=== PATIENT | female | born 1990 | race Caucasian/White ===

== ENCOUNTER 2020-05-10 11:33 | Emergency (ER) | payer OTHER, SELFPAY ==
[2020-05-10 11:36] VITALS: BP 122/73; PULSE 82; RESP 20; TEMP 37.1; O2SAT 90; BMI 39.4
--- NOTE | 2020-05-10 11:39 | XR_ITS ---
WS: [id number] PORTABLE CHEST HISTORY: dyspnea/cough COMPARISON: 09/13/2017 There is some very mild haziness at the LEFT lung base and fluid along the RIGHT minor fissure. Fulln ess at the hilar regions bilaterally consistent with venous congestion. Small RIGHT pleural effusion. Cardiac size: Mildly enlarged cardiac silhouette. Mediastinum/Aorta: Normal mediastinum. No osseous abnormality seen. XR/XR chest 1V portable [id number] IMPRESSION: Interval development of mild CHF. Small LEFT pleural effusion.
--- NOTE | 2020-05-10 11:40 | ECG_ITS ---
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 Measurements Intervals [place] Rate: 72 P: 36 WI: 157 QRS: 11 QRSD: 89 T: 24 QT: 375 QTc: 412 Interpretive Statements SINUS RHYTHM Compared to ECG 09/13/2017 22:14:30 Left ventricular hypertrophy no longer present Electronically Signed On 05-10-2020 15:35:29 CDT by Siobhan Barakat M.D. [id number] f
--- NOTE | 2020-05-10 11:40 | CT_ITS ---
WS: [id number] CT HEAD NONCONTRAST HISTORY: AMS TECHNIQUE: Contiguous axial imaging performed through the brain in 2.5 mm imaging. Bone and soft tiss ue windows. Sagittal and coronal reformats reviewed. All CT scans at [facility] use at ast one of these dose optimization techniques: automated exposure control; mA and/or kV adjustment pe r patient size (includes targeted exams where dose is matched to clinical indication); or iterative r econstruction. DLP: 787.43 mGy.cm COMPARISON: 03/09/2013 No acute intracranial hemorrhage, midline shift or mass effect. No atrophy or prior infarcts or herniation. Ventricles: Normal size with no hydrocephalus. Paranasal sinuses: As visualized are clear. Mastoid air cells: Well pneumatized. Calvarium and scalp: Skull is intact with no soft tissue edema or swelling. CT/CT head wo con* [id number] IMPRESSION: Negative head CT.
--- NOTE | 2020-05-10 11:41 | W.ED.AMS ---
HPI - Altered Mental Status General: Chief Complaint: Altered Mental Status Stated Complaint: ALOC/ ARRINGTON/ SOB/ HYPERTENSION Time Seen by Provider: 05/10/20 11:38 History of Present Illness: HPI narrative: 29 yo female presents emergency room with hypoxia. She came in by EMS family states she is unresponsive and shaking gives no history of seizure she can can remember the event she felt like she was going to pass out she denies hitting her head she does have a history of opiate addiction as well. States for the last couple of days she has been coughing and short of breath she had a subjective fever. Cough is been nonproductive EMS reports that on room air she was 88% on arrival and improved to 94% on 3 L by nasal cannula she does not usually use oxygen. She denies any history of chronic respiratory problems she has no known exposures far she is aware to anyone who is recently been ill or known to be COVID-19 positive. Initially patient was sedate later in the ER visit she became awake alert and oriented x3 Review of Systems Const: Reports: fever(s), chills, body aches, fatigue and malaise; Denies: change in appetite ENMT: Denies: throat pain, ear or mastoid pain, nasal discharge or nasal congestion Card: Denies: chest pain, edema, dyspnea on exertion or orthopnea Resp: Reports: dyspnea and non-productive cough; Denies: productive cough GI: Reports: nausea; Denies: abdominal pain, vomiting, hematemesis, coffee ground emesis, diarrhea, constipation, bloating, hematochezia or melena : Denies: flank pain, difficulty voiding, dysuria, urinary frequency or urinary urgency Skin/Breast: Denies: rash or pruritus PFSH ED PFSH: Medical History Nephrolithiasis Surgical History History of appendectomy History of section History of cholecystectomy History of ventral hernia repair Family History Other CAD (coronary artery disease) Social History Smoking and tobacco status: current every day smoker cigarettes Packs smoked per day: 1 Alcohol intake: never Physical Exam Const: ORIENTATION/CONSCIOUSNESS: Yes awake, Yes oriented to person, Yes oriented to place and Yes oriented to time HENMT: COMMON NORMALS: normocephalic, atraumatic, hearing grossly normal bilaterally, external ears normal, moist oral mucous membranes and oropharynx normal HEAD & SCALP: normocephalic and atraumatic EXTERNAL EAR: Yes external ears normal Eye: COMMON NORMALS: Equal, round and reactive pupils present, EOMs intact bilaterally, conjunctivae normal and no scleral icterus CONJUNCTIVA: Yes conjunctivae normal PUPIL: Yes Equal, round and reactive pupils present Neck/C-Spine: COMMON NORMALS: full ROM, no lymphadenopathy, supple and no JVD Lymph: LYMPHATIC: no lymphadenopathy noted and no lymphedema noted Resp: AUSCULTATION: rhonchi, wheezes, diminished lung sounds and bronchial breath sounds Cardio: COMMON NORMALS: no JVD, regular rate, regular rhythm and No murmurs present (Cardio) RATE: regular rate RHYTHM: regular rhythm GI: COMMON NORMALS: Soft to palpation and No hepatosplenomegaly present AUSCULTATION: Yes normoactive bowel sounds PALPATION: Yes Soft to palpation, No Tenderness to palpation present (GI), No Guarding due to palpation present (GI) and Yes No hepatosplenomegaly present Extremity: COMMON NORMALS: normal to inspection, capillary refill normal, no clubbing, cyanosis or edema, no calf tenderness and no pedal edema Neuro: SENSORIUM/ORIENTATION: Yes oriented to person, Yes oriented to place and Yes oriented to time Skin: COMMON NORMALS: no rashes or lesions noted GENERAL SKIN EXAM: no rashes or lesions noted Course Vital Signs: Vital signs: Vital Signs Temperature 98.8 F 05/10/20 11:36 Pulse Rate 82 05/10/20 11:36 Respiratory Rate 17 05/10/20 20:06 Blood Pressure 122/73 05/10/20 11:36 Pulse Oximetry 99 05/10/20 20:06 MDM - Altered Mental Status MDM Narrative: Medical decision making narrative: Patient CT shows groundglass appearance very consistent with covid 19. Discussed with the patient discussed with Dr. Land and Dr. Baca will place her in the MICU in the POI section. She is requiring oxygen at 4 L/min by nasal cannula to maintain her oxygen saturation. While we are waiting to get patient transferred to the VICU she decided she wanted to leave AMA I went in and discussed with her's had an exhaustive conversation with the patient. She is adamant about going home. Expressed to her the risk to herself the wrist others. Also expressed to her the potential for herself to worsen and even from this as well as spreading this to others. She is adamant that she leave she just does not wish to stay overnight. She does not believe there is any risk to others she believes other people she has been around she is already exposed. She also does not believe she has it and is not willing to wait for the results to find out one way or another. Recommended to her that she stay until the results come back. Stated to the patient she is putting her own life at risk by leaving since she was already showing evidence of hypoxia. She expresses understanding and wishes to leave anyway. Lab Data: Labs: Lab Results 05/10/20 05/10/20 05/10/20 Range/Units 11:55 12:44 12:44 WBC 9.4 (4.0-10.0) 10^3/ uL RBC 4.26 (4.1-5.3) 10^6/u L Hgb 12.5 (11.5-15.3) g/dL Hct 39.7 (37.0-47.0) % MCV 93.2 (81-99) fL MCH 29.3 (28.0-34.0) pg MCHC 31.5 (30.0-36.0) g/dL RDW 14.5 (12.1-15.1) % Plt Count 236 (130-400) 10^3/c mm MPV 10.7 H (7.4-10.4) fL Neut % (Auto) 84.0 % Lymph % (Auto) 9.5 % Mccormick % (Auto) 4.8 % Eos % (Auto) 1.2 % Baso % (Auto) 0.2 % Neut # (Auto) 7.87 H (1.8-7.7) 10^3/u L Lymph # (Auto) 0.9 (0.8-4.8) 10^3/u L Mccormick # (Auto) 0.5 (0.2-0.9) 10^3/u L Eos # (Auto) 0.1 (0.0-0.8) 10^3/u L Baso # (Auto) 0.0 (0.0-0.1) 10^3/u L Nucleated RBC % (a uto) 0 % Nucleated RBCs # 0.0 /100WBC PT (10.5-13.3) SECO NDS INR (0.8-1.2) APTT (23.9-36.7) SECO NDS Fibrinogen (184-529) mg/dL D-Dimer (0-0.59) ug/mIFE U Specimen Type Arterial Sample Site Brachial, left ABG pH 7.37 (7.35-7.45) ABG pCO2 45.2 H (35-45) mmHg ABG pO2 68.7 L (80.0-100.0) mmH g ABG HCO3 25.9 (22-26) mmol/L ABG Base Excess 0.1 (-2.0-2.0) mmol/ L Trell Test Pos Hematocrit 40.5 (37-47) % O2 Delivery Device Nc O2 Liters/Min 3.0 % FiO2 32.0 % Editorial Specialist ID cak Estimat Average Gl ucose Hemoglobin A1c (4.0-6.0) % Lactate 0.7 (0.5-2.2) mmol/L Ammonia (11-51) umol/L Troponin T Baselin e (0-10) ng/L Troponin T 120 Min [place] (0-10) ng/L Delta Troponin T (0-10) ABS# Troponin T Hi Sens 6Hr (0-10) ng/L Troponin T Hi Sens 6Hr Delta (0-12) ng/L NT-Pro-B Natriuret Pep (0-125) pg/mL Procalcitonin (0-0.5) ng/mL TSH (0.27-4.20) uIU/ mL HCG, Qual (Negative) Urine Color (Yellow) Urine Appearance (CLEAR) Urine pH (5-7) Ur Specific Gravit y (1.005-1.030) Urine Protein (Negative) Urine Glucose (UA) (Normal) Urine Ketones (Negative) Urine Blood (Negative) Urine Nitrate (Negative) Urine Bilirubin (NEGATIVE) Prot Sulfosalicyli c Acd (Negative) Urine Urobilinogen (Negative) mg/dL Ur Leukocyte Mitzy ase (Negative) Urine RBC (0-2) /hpf Urine WBC (0-5) /hpf Ur Squamous Epith Cells (0-5) Amorphous Sediment Urine Bacteria (NONE) Urine Opiates Scre en (Negative) ng/mL Ur Barbiturates Sc reen (Negative) ng/mL Ur Phencyclidine S crn (Negative) ng/mL Ur Amphetamines Sc reen (Negative) ng/mL U Benzodiazepines Scrn (Negative) ng/mL Urine Cocaine Scre en (Negative) ng/mL U Marijuana (THC) Screen (Negative) ng/mL Nasal/Oral COVID-1 9 PCR Influenza Type A A g (Negative) Influenza Type B A g (Negative) 05/10/20 05/10/20 05/10/20 Range/Units 12:44 12:44 12:44 WBC (4.0-10.0) 10^3/ uL RBC (4.1-5.3) 10^6/u L Hgb (11.5-15.3) g/dL Hct (37.0-47.0) % MCV (81-99) fL MCH (28.0-34.0) pg MCHC (30.0-36.0) g/dL RDW (12.1-15.1) % Plt Count (130-400) 10^3/c mm MPV (7.4-10.4) fL Neut % (Auto) % Lymph % (Auto) % Mccormick % (Auto) % Eos % (Auto) % Baso % (Auto) % Neut # (Auto) (1.8-7.7) 10^3/u L Lymph # (Auto) (0.8-4.8) 10^3/u L Mccormick # (Auto) (0.2-0.9) 10^3/u L Eos # (Auto) (0.0-0.8) 10^3/u L Baso # (Auto) (0.0-0.1) 10^3/u L Nucleated RBC % (a uto) % Nucleated RBCs # /100WBC PT 12.30 (10.5-13.3) SECO NDS INR 0.89 (0.8-1.2) APTT 32.5 (23.9-36.7) SECO NDS Fibrinogen 392 (184-529) mg/dL D-Dimer 0.68 H (0-0.59) ug/mIFE U Specimen Type Sample Site ABG pH (7.35-7.45) ABG pCO2 (35-45) mmHg ABG pO2 (80.0-100.0) mmH g ABG HCO3 (22-26) mmol/L ABG Base Excess (-2.0-2.0) mmol/ L Trell Test Hematocrit (37-47) % O2 Delivery Device O2 Liters/Min % FiO2 % Editorial Specialist ID Estimat Average Gl ucose Hemoglobin A1c (4.0-6.0) % Lactate (0.5-2.2) mmol/L Ammonia 34 (11-51) umol/L Troponin T Baselin e 6 (0-10) ng/L Troponin T 120 Min [place] (0-10) ng/L Delta Troponin T (0-10) ABS# Troponin T Hi Sens 6Hr (0-10) ng/L Troponin T Hi Sens 6Hr Delta (0-12) ng/L NT-Pro-B Natriuret Pep (0-125) pg/mL Procalcitonin (0-0.5) ng/mL TSH (0.27-4.20) uIU/ mL HCG, Qual (Negative) Urine Color (Yellow) Urine Appearance (CLEAR) Urine pH (5-7) Ur Specific Gravit y (1.005-1.030) Urine Protein (Negative) Urine Glucose (UA) (Normal) Urine Ketones (Negative) Urine Blood (Negative) Urine Nitrate (Negative) Urine Bilirubin (NEGATIVE) Prot Sulfosalicyli c Acd (Negative) Urine Urobilinogen (Negative) mg/dL Ur Leukocyte Mitzy ase (Negative) Urine RBC (0-2) /hpf Urine WBC (0-5) /hpf Ur Squamous Epith Cells (0-5) Amorphous Sediment Urine Bacteria (NONE) Urine Opiates Scre en (Negative) ng/mL Ur Barbiturates Sc reen (Negative) ng/mL Ur Phencyclidine S crn (Negative) ng/mL Ur Amphetamines Sc reen (Negative) ng/mL U Benzodiazepines Scrn (Negative) ng/mL Urine Cocaine Scre en (Negative) ng/mL U Marijuana (THC) Screen (Negative) ng/mL Nasal/Oral COVID-1 9 PCR Influenza Type A A g (Negative) Influenza Type B A g (Negative) 07/09/20 07/09/20 07/09/20 Range/Units 12:44 13:09 13:10 WBC (4.0-10.0) 10^3/ uL RBC (4.1-5.3) 10^6/u L Hgb (11.5-15.3) g/dL Hct (37.0-47.0) % MCV (81-99) fL MCH (28.0-34.0) pg MCHC (30.0-36.0) g/dL RDW (12.1-15.1) % Plt Count (130-400) 10^3/c mm MPV (7.4-10.4) fL Neut % (Auto) % Lymph % (Auto) % Mccormick % (Auto) % Eos % (Auto) % Baso % (Auto) % Neut # (Auto) (1.8-7.7) 10^3/u L Lymph # (Auto) (0.8-4.8) 10^3/u L Mccormick # (Auto) (0.2-0.9) 10^3/u L Eos # (Auto) (0.0-0.8) 10^3/u L Baso # (Auto) (0.0-0.1) 10^3/u L Nucleated RBC % (a uto) % Nucleated RBCs # /100WBC PT (10.5-13.3) SECO NDS INR (0.8-1.2) APTT (23.9-36.7) SECO NDS Fibrinogen (184-529) mg/dL D-Dimer (0-0.59) ug/mIFE U Specimen Type Sample Site ABG pH (7.35-7.45) ABG pCO2 (35-45) mmHg ABG pO2 (80.0-100.0) mmH g ABG HCO3 (22-26) mmol/L ABG Base Excess (-2.0-2.0) mmol/ L Trell Test Hematocrit (37-47) % O2 Delivery Device O2 Liters/Min % FiO2 % Editorial Specialist ID Estimat Average Gl ucose 111 Hemoglobin A1c 5.5 (4.0-6.0) % Lactate (0.5-2.2) mmol/L Ammonia (11-51) umol/L Troponin T Baselin e (0-10) ng/L Troponin T 120 Min [place] (0-10) ng/L Delta Troponin T (0-10) ABS# Troponin T Hi Sens 6Hr (0-10) ng/L Troponin T Hi Sens 6Hr Delta (0-12) ng/L NT-Pro-B Natriuret Pep (0-125) pg/mL Procalcitonin (0-0.5) ng/mL TSH (0.27-4.20) uIU/ mL HCG, Qual (Negative) Urine Color (Yellow) Urine Appearance (CLEAR) Urine pH (5-7) Ur Specific Gravit y (1.005-1.030) Urine Protein (Negative) Urine Glucose (UA) (Normal) Urine Ketones (Negative) Urine Blood (Negative) Urine Nitrate (Negative) Urine Bilirubin (NEGATIVE) Prot Sulfosalicyli c Acd (Negative) Urine Urobilinogen (Negative) mg/dL Ur Leukocyte Mitzy ase (Negative) Urine RBC (0-2) /hpf Urine WBC (0-5) /hpf Ur Squamous Epith Cells (0-5) Amorphous Sediment Urine Bacteria (NONE) Urine Opiates Scre en (Negative) ng/mL Ur Barbiturates Sc reen (Negative) ng/mL Ur Phencyclidine S crn (Negative) ng/mL Ur Amphetamines Sc reen (Negative) ng/mL U Benzodiazepines Scrn (Negative) ng/mL Urine Cocaine Scre en (Negative) ng/mL U Marijuana (THC) Screen (Negative) ng/mL Nasal/Oral COVID-1 9 PCR See report Influenza Type A A g Negative (Negative) Influenza Type B A g Negative (Negative) 05/10/20 05/10/20 05/10/20 Range/Units 14:17 14:17 14:17 WBC (4.0-10.0) 10^3/ uL RBC (4.1-5.3) 10^6/u L Hgb (11.5-15.3) g/dL Hct (37.0-47.0) % MCV (81-99) fL MCH (28.0-34.0) pg MCHC (30.0-36.0) g/dL RDW (12.1-15.1) % Plt Count (130-400) 10^3/c mm MPV (7.4-10.4) fL Neut % (Auto) % Lymph % (Auto) % Mccormick % (Auto) % Eos % (Auto) % Baso % (Auto) % Neut # (Auto) (1.8-7.7) 10^3/u L Lymph # (Auto) (0.8-4.8) 10^3/u L Mccormick # (Auto) (0.2-0.9) 10^3/u L Eos # (Auto) (0.0-0.8) 10^3/u L Baso # (Auto) (0.0-0.1) 10^3/u L Nucleated RBC % (a uto) % Nucleated RBCs # /100WBC PT (10.5-13.3) SECO NDS INR (0.8-1.2) APTT (23.9-36.7) SECO NDS Fibrinogen (184-529) mg/dL D-Dimer (0-0.59) ug/mIFE U Specimen Type Sample Site ABG pH (7.35-7.45) ABG pCO2 (35-45) mmHg ABG pO2 (80.0-100.0) mmH g ABG HCO3 (22-26) mmol/L ABG Base Excess (-2.0-2.0) mmol/ L Trell Test Hematocrit (37-47) % O2 Delivery Device O2 Liters/Min % FiO2 % Editorial Specialist ID Estimat Average Gl ucose Hemoglobin A1c (4.0-6.0) % Lactate (0.5-2.2) mmol/L Ammonia (11-51) umol/L Troponin T Baselin e (0-10) ng/L Troponin T 120 Min [place] (0-10) ng/L Delta Troponin T (0-10) ABS# Troponin T Hi Sens 6Hr (0-10) ng/L Troponin T Hi Sens 6Hr Delta (0-12) ng/L NT-Pro-B Natriuret Pep (0-125) pg/mL Procalcitonin (0-0.5) ng/mL TSH (0.27-4.20) uIU/ mL HCG, Qual Negative (Negative) Urine Color Yellow (Yellow) Urine Appearance Cloudy (CLEAR) Urine pH 5 (5-7) Ur Specific Gravit y 1.020 (1.005-1.030) Urine Protein Neg (Negative) Urine Glucose (UA) Norm (Normal) Urine Ketones Negative (Negative) Urine Blood Neg (Negative) Urine Nitrate Positive H (Negative) Urine Bilirubin Neg (NEGATIVE) Prot Sulfosalicyli c Acd Negative (Negative) Urine Urobilinogen Norm (Negative) mg/dL Ur Leukocyte Mitzy ase Negative (Negative) Urine RBC 0-4 H (0-2) /hpf Urine WBC None (0-5) /hpf Ur Squamous Epith Cells 15-25 H (0-5) Amorphous Sediment 4+ Urine Bacteria 4+ H (NONE) Urine Opiates Scre en Negative (Negative) ng/mL Ur Barbiturates Sc reen Negative (Negative) ng/mL Ur Phencyclidine S crn Negative (Negative) ng/mL Ur Amphetamines Sc reen Negative (Negative) ng/mL U Benzodiazepines Scrn Negative (Negative) ng/mL Urine Cocaine Scre en Negative (Negative) ng/mL U Marijuana (THC) Screen Negative (Negative) ng/mL Nasal/Oral COVID-1 9 PCR Influenza Type A A g (Negative) Influenza Type B A g (Negative) 05/10/20 05/10/20 05/10/20 Range/Units 16:16 19:15 19:15 WBC (4.0-10.0) 10^3/ uL RBC (4.1-5.3) 10^6/u L Hgb (11.5-15.3) g/dL Hct (37.0-47.0) % MCV (81-99) fL MCH (28.0-34.0) pg MCHC (30.0-36.0) g/dL RDW (12.1-15.1) % Plt Count (130-400) 10^3/c mm MPV (7.4-10.4) fL Neut % (Auto) % Lymph % (Auto) % Mccormick % (Auto) % Eos % (Auto) % Baso % (Auto) % Neut # (Auto) (1.8-7.7) 10^3/u L Lymph # (Auto) (0.8-4.8) 10^3/u L Mccormick # (Auto) (0.2-0.9) 10^3/u L Eos # (Auto) (0.0-0.8) 10^3/u L Baso # (Auto) (0.0-0.1) 10^3/u L Nucleated RBC % (a uto) % Nucleated RBCs # /100WBC PT (10.5-13.3) SECO NDS INR (0.8-1.2) APTT (23.9-36.7) SECO NDS Fibrinogen (184-529) mg/dL D-Dimer (0-0.59) ug/mIFE U Specimen Type Sample Site ABG pH (7.35-7.45) ABG pCO2 (35-45) mmHg ABG pO2 (80.0-100.0) mmH g ABG HCO3 (22-26) mmol/L ABG Base Excess (-2.0-2.0) mmol/ L Trell Test Hematocrit (37-47) % O2 Delivery Device O2 Liters/Min % FiO2 % Editorial Specialist ID Estimat Average Gl ucose Hemoglobin A1c (4.0-6.0) % Lactate (0.5-2.2) mmol/L Ammonia (11-51) umol/L Troponin T Baselin e (0-10) ng/L Troponin T 120 Min [place] 6.00 (0-10) ng/L Delta Troponin T 0 (0-10) ABS# Troponin T Hi Sens 6Hr 6.00 (0-10) ng/L Troponin T Hi Sens 6Hr Delta 0 (0-12) ng/L NT-Pro-B Natriuret Pep (0-125) pg/mL Procalcitonin (0-0.5) ng/mL TSH 0.78 (0.27-4.20) uIU/ mL HCG, Qual (Negative) Urine Color (Yellow) Urine Appearance (CLEAR) Urine pH (5-7) Ur Specific Gravit y (1.005-1.030) Urine Protein (Negative) Urine Glucose (UA) (Normal) Urine Ketones (Negative) Urine Blood (Negative) Urine Nitrate (Negative) Urine Bilirubin (NEGATIVE) Prot Sulfosalicyli c Acd (Negative) Urine Urobilinogen (Negative) mg/dL Ur Leukocyte Mitzy ase (Negative) Urine RBC (0-2) /hpf Urine WBC (0-5) /hpf Ur Squamous Epith Cells (0-5) Amorphous Sediment Urine Bacteria (NONE) Urine Opiates Scre en (Negative) ng/mL Ur Barbiturates Sc reen (Negative) ng/mL Ur Phencyclidine S crn (Negative) ng/mL Ur Amphetamines Sc reen (Negative) ng/mL U Benzodiazepines Scrn (Negative) ng/mL Urine Cocaine Scre en (Negative) ng/mL U Marijuana (THC) Screen (Negative) ng/mL Nasal/Oral COVID-1 9 PCR Influenza Type A A g (Negative) Influenza Type B A g (Negative) 05/10/20 Range/Units 19:15 WBC (4.0-10.0) 10^3/ uL RBC (4.1-5.3) 10^6/u L Hgb (11.5-15.3) g/dL Hct (37.0-47.0) % MCV (81-99) fL MCH (28.0-34.0) pg MCHC (30.0-36.0) g/dL RDW (12.1-15.1) % Plt Count (130-400) 10^3/c mm MPV (7.4-10.4) fL Neut % (Auto) % Lymph % (Auto) % Mccormick % (Auto) % Eos % (Auto) % Baso % (Auto) % Neut # (Auto) (1.8-7.7) 10^3/u L Lymph # (Auto) (0.8-4.8) 10^3/u L Mccormick # (Auto) (0.2-0.9) 10^3/u L Eos # (Auto) (0.0-0.8) 10^3/u L Baso # (Auto) (0.0-0.1) 10^3/u L Nucleated RBC % (a uto) % Nucleated RBCs # /100WBC PT (10.5-13.3) SECO NDS INR (0.8-1.2) APTT (23.9-36.7) SECO NDS Fibrinogen (184-529) mg/dL D-Dimer (0-0.59) ug/mIFE U Specimen Type Sample Site ABG pH (7.35-7.45) ABG pCO2 (35-45) mmHg ABG pO2 (80.0-100.0) mmH g ABG HCO3 (22-26) mmol/L ABG Base Excess (-2.0-2.0) mmol/ L Trell Test Hematocrit (37-47) % O2 Delivery Device O2 Liters/Min % FiO2 % Editorial Specialist ID Estimat Average Gl ucose Hemoglobin A1c (4.0-6.0) % Lactate (0.5-2.2) mmol/L Ammonia (11-51) umol/L Troponin T Baselin e (0-10) ng/L Troponin T 120 Min [place] (0-10) ng/L Delta Troponin T (0-10) ABS# Troponin T Hi Sens 6Hr (0-10) ng/L Troponin T Hi Sens 6Hr Delta (0-12) ng/L NT-Pro-B Natriuret Pep 123 (0-125) pg/mL Procalcitonin 0.04 (0-0.5) ng/mL TSH (0.27-4.20) uIU/ mL HCG, Qual (Negative) Urine Color (Yellow) Urine Appearance (CLEAR) Urine pH (5-7) Ur Specific Gravit y (1.005-1.030) Urine Protein (Negative) Urine Glucose (UA) (Normal) Urine Ketones (Negative) Urine Blood (Negative) Urine Nitrate (Negative) Urine Bilirubin (NEGATIVE) Prot Sulfosalicyli c Acd (Negative) Urine Urobilinogen (Negative) mg/dL Ur Leukocyte Mitzy ase (Negative) Urine RBC (0-2) /hpf Urine WBC (0-5) /hpf Ur Squamous Epith Cells (0-5) Amorphous Sediment Urine Bacteria (NONE) Urine Opiates Scre en (Negative) ng/mL Ur Barbiturates Sc reen (Negative) ng/mL Ur Phencyclidine S crn (Negative) ng/mL Ur Amphetamines Sc reen (Negative) ng/mL U Benzodiazepines Scrn (Negative) ng/mL Urine Cocaine Scre en (Negative) ng/mL U Marijuana (THC) Screen (Negative) ng/mL Nasal/Oral COVID-1 9 PCR Influenza Type A A g (Negative) Influenza Type B A g (Negative) Discharge Plan Discharge Patient Disposition: Left Against Medical Advice Clinical Impression: Acute respiratory failure with hypoxia Prescriptions: No Action gabapentin 600 mg tablet 600 mg PO TID RF: 0 buprenorphine-naloxone 8-2 mg film 1 film sublingual BID RF: 0 Interventions: ED Discharge Assessment Last Done: 05/10/20 21:55 ED Charges Last Done: 05/10/20 21:55 Discharge Date/Time: 05/10/20 21:59 Coding Level of Care Code ED Child Watch Attendant for Chg Fwd Exam Comprehensive
[2020-05-10 12:06] LABS: ABG PCO2 45.2 mmHg (35-45); ABG PH Result 7.37 (7.35-7.45); Arterial Blood Gas Hematocrit 40.5 % (37-47); Base Excess ABG 0.1 mmol/L (-2.0-2.0); Blood Gas Allen Test Pos; Blood Gas Sample Site Brachial, left; Blood Gas Sample Type Arterial; HCO3 ABG 25.9 mmol/L (22-26); Oxygen Device NC; PO2 ABG 68.7 mmHg (80.0-100.0)
[2020-05-10] MEDS: sodium chloride 0.9% 1,000 ML 999 ML IV (12:22)
[2020-05-10 12:58] LABS: Basophils % 0.2 %; Eosinophils # 0.1 10^3/uL (0.0-0.8); Eosinophils % 1.2 %; Hematocrit 39.7 % (37.0-47.0); Hemoglobin 12.5 g/dL (11.5-15.3); Lymphocytes # 0.9 10^3/uL (0.8-4.8); Lymphocytes % 9.5 %; Mean Corpuscular HGB Conc 31.5 g/dL (30.0-36.0); Mean Corpuscular Hemoglobin 29.3 pg (28.0-34.0); Mean Corpuscular Volume 93.2 fL (81-99); Mean Platelet Volume 10.7 fL (7.4-10.4); Monocytes # 0.5 10^3/uL (0.2-0.9); Monocytes % 4.8 %; Neutrophils # 7.87 10^3/uL (1.8-7.7); Nucleated Red Blood Cells % 0 %; Platelet Count 236 10^3/cmm (130-400); Red Blood Count 4.26 10^6/uL (4.1-5.3); Red Cell Distribution Width 14.5 % (12.1-15.1); White Blood Count 9.4 10^3/uL (4.0-10.0)
[2020-05-10] MEDS: sodium chloride 0.9% 1,000 ML 75 ML IV (13:00)
--- NOTE | 2020-05-10 13:40 | ECG_ITS ---
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 Measurements Intervals [place] Rate: 64 P: 40 W[place]: 147 QRS: 15 QRSD: 89 T: 30 QT: 402 QTc: 416 Interpretive Statements SINUS RHYTHM Compared to ECG 05/10/2020 12:56:24 No significant changes Electronically Signed On 05-10-2020 17:17:18 CDT by Siobhan Barakat M.D. [id number]
[2020-05-10 13:43] LABS: Ammonia 34 umol/L (11-51); Lactate (Lactic Acid level) 0.7 mmol/L (0.5-2.2)
[2020-05-10 13:45] LABS: Fibrinogen 392 mg/dL (184-529)
[2020-05-10 13:46] LABS: Troponin(5th) Baseline 6 ng/L (0-10)
[2020-05-10 14:23] LABS: D Dimer 0.68 ug/mIFEU (0-0.59); INR 0.89 (0.8-1.2); Partial Thromboplastin Time 32.5 SECONDS (23.9-36.7)
--- NOTE | 2020-05-10 14:25 | CT_ITS ---
WS: [id number] CT CHEST ANGIOGRAPHY WITH REFORMATS HISTORY: elevated D-Dimer TECHNIQUE: Contiguous axial images are obtained through the chest during arterial injection of intrav enous contrast. Images are reconstructed to evaluate the pulmonary arteries. MIP imaging also reviewe d. All CT scans at [facility] use at least one of these dose optimization techniques: aut omated exposure control; mA and/or kV adjustment per patient size (includes targeted exams where dose is matched to clinical indication); or iterative reconstruction. CONTRAST: Omnipaque 350; 95 mL IV. DLP: 512.01 mGy.cm COMPARISON: None available. Adequate opacification of the pulmonary arteries. There are no filling defects or pulmonary emboli. A rtery is slightly prominent at 3.1 cm. Mild atherosclerosis aorta. Multi lobar areas of mild scattered opacifications with linear areas of atelectasis. There are a few scattered groundglass opacifications. No pericardial or pleural effusion. Subcentimeter mediastinal a nd hilar lymph nodes. Probably reactive. Upper abdomen is negative. Prior cholecystectomy. CT/CT angio chest PE protcl [id number] IMPRESSION: 1. No pulmonary embolism. 2. Multilobar areas of subsegmental groundglass attenuation, atelectasis and a few scattered opacifications. Most significant findings in the RIGHT upper lob e.
[2020-05-10 14:40] LABS: HCG Qualitative Urine. Negative (Negative)
[2020-05-10] MEDS: iohexol 350 mg/mL 100 mL Btl 95 ML IV (15:44)
[2020-05-10 16:42] LABS: Troponin 5 2HR Delta 0 ABS# (0-10)
--- NOTE | 2020-05-10 17:40 | ECG_ITS ---
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 Measurements Intervals [place] Rate: 77 P: 40 SC: 152 QRS: 20 QRSD: 90 T: 30 QT: 358 QTc: 407 Interpretive Statements SINUS RHYTHM Compared to ECG 05/10/2020 14:20:36 No significant changes Electronically Signed On 05-10-2020 22:30:39 CDT by Siobhan Barakat M.D. [id number]
[2020-05-10] MEDS: HYDROcodone-acetaminophen 5-325 mg Tablet 2 TAB PO (17:42)
[2020-05-10 19:09] LABS: Amphetamines Screen Urine Negative (Negative); Barbiturates Screen Urine Negative (Negative); Benzodiazepines Screen Urine Negative (Negative); Cocaine Screen Urine Negative (Negative); Opiate Screen Urine Negative (Negative); PCP Screen Urine Negative (Negative); THC Screen Urine Negative (Negative)
--- NOTE | 2020-05-10 19:09 | PM.HP ---
Providers/Chief Complaint Primary Care Provider: Colt Rios MD Chief Complaint: ALOC/ ARRINGTON/ SOB/ HYPERTENSION History of Present Illness Suhail Clayton is a 29 year old female with a past medical history of opiate addiction on buprenorphine, who presents [facility] due to a 3-day history of cough, shortness of breath, fatigue, malaise. Patient states that for the last 3 days, she has had cough, malaise, fatigue, shortness of breath, progressing to shortness of breath at rest. Patient states that she woke up this morning, significantly short of breath, which persisted throughout the day, she decided to come to the emergency room. Has subjective fevers. Notes sick contacts. No recent travel. Patient does state that she has 3 kids, , mother, sister are immediate exposure. By doing well. She on May 05 attended a barbecue with a few friends, did drift down a local stream. No cardiovascular history. No smoking. No history of COPD. No history of asthma. No history of immunocompromised state. Review of Systems Const: Reports: fever(s), body aches and fatigue; Denies: chills or malaise Eyes: Denies: change in vision or blurry vision ENMT: Denies: nasal congestion Resp: Reports: dyspnea and non-productive cough; Denies: productive cough or wheezing GI: Denies: abdominal pain, nausea, vomiting, hematemesis, diarrhea, constipation, hematochezia or melena : Denies: flank pain, dysuria or urinary frequency Musc: Denies: neck pain or back pain Skin/Breast: Denies: rash Neuro: Denies: headache(s), dizziness or vertigo Psych: Denies: anxiety or depression Endo: Denies: polyuria or polydipsia Medications/Allergies Home Medications Medication Instructions Recorded Confirmed Last Taken Type buprenorphine-naloxone 1 film SUBLINGUAL BID 05/10/20 05/10/20 05/09/20 History gabapentin 600 mg PO TID 05/10/20 05/10/20 05/09/20 History Allergies Allergy/AdvReac Type Severity Reaction Status Date / Time prochlorperazine Allergy ADR-Irritab Verified 05/10/20 11:45 [From Compazine] le ranitidine [From Zantac] Allergy ADR-Irritab Verified 07/09/20 11:45 le PFSH Acute PFSH: Medical History (Updated 05/10/20 @ 19:15 by Ramon Ackerman MD) Nephrolithiasis Surgical History (Updated 05/10/20 @ 12:21 by Henry Jeffries DO) History of appendectomy History of section History of cholecystectomy History of ventral hernia repair Family History (Updated 05/10/20 @ 19:12 by Ramon Ackerman MD) Other CAD (coronary artery disease) Social History (Updated 05/10/20 @ 12:21 by Henry Jeffries DO) Smoking and tobacco status: current every day smoker cigarettes Packs smoked per day: 1 Alcohol intake: never Vitals/I&O/Wt Last Vital Signs Temp 98.8 F 05/10/20 11:36 Pulse 82 05/10/20 11:36 Resp 20 H 05/10/20 11:36 BP 122/73 05/10/20 11:36 Pulse Ox 90 05/10/20 11:36 Weight last 48 hrs Weight 104.326 kg Physical Exam Const: COMMON NORMALS: no acute distress and patient oriented x3 GENERAL APPEARANCE: cooperative and comfortable HENMT: COMMON NORMALS: normocephalic HEAD & SCALP: normocephalic Eye: COMMON NORMALS: Equal, round and reactive pupils present and EOMs intact bilaterally GENERAL EYE: appearance normal, both eyes and all related structures PUPIL: Yes Equal, round and reactive pupils present Neck/C-Spine: COMMON NORMALS: full ROM, no lymphadenopathy, no JVD and Thyroid normal THYROID: Thyroid normal Lymph: LYMPHATIC: no lymphadenopathy noted Resp: COMMON NORMALS: normal respiratory effort, No retractions and No use of accessory muscles AUSCULTATION: crackles and wheezes Cardio: COMMON NORMALS: no JVD, regular rate, regular rhythm, S1 normal heart sound present, S2 normal heart sound present, No gallops present (Cardio), No clicks present (Cardio) and No murmurs present (Cardio) RATE: regular rate RHYTHM: regular rhythm HEART SOUNDS: S1 normal heart sound present and S2 normal heart sound present GI: COMMON NORMALS: Normal to inspection, nondistended, normoactive bowel sounds present, Soft to palpation, non-tender and No hepatosplenomegaly present PALPATION: Yes Soft to palpation and Yes No hepatosplenomegaly present Extremity: COMMON NORMALS: normal to inspection, full ROM and no pedal edema Neuro: COMMON NORMALS: patient oriented x3, CN's II-XII intact bilaterally, moves all extremities and no focal motor deficits Psych: COMMON NORMALS: mental status grossly normal, Normal thought process present and cooperative THOUGHT PROCESS: Normal thought process present Data : 05/10/20 12:44 Micro: Microbiology 05/10/20 12:44 Blood Culture - Preliminary Blood SPECIMEN COLLECTED 05/10/20 12:40 Blood Culture - Preliminary Blood SPECIMEN COLLECTED A&P Assessment and plan (1) Acute respiratory failure with hypoxia: -cta chest shows Multilobar areas of subsegmental groundglass attenuation, atelectasis and a few scattered opacifications. Most significant findings in the RIGHT upper lobe. -Temperature 98.8, respiratory rate 20, saturating 90% on 4 L liters -No white count, negative lactate, negative ammonia, Plan: -Person under investigation for Covid 19 -Oxygen therapy -Nebulizer treatment as needed -Once COVID testing comes back positive, will contact [facility] for possible transfer patient would be a candidate for remdesivir -Patient is a full code Status: Acute (2) Shortness of breath: Status: Acute (3) Buprenorphine dependence: Status: Acute Attestations Medical Necessity Statement*: Requires hospitalization, inpatient, greater than 2 midnights, for acute respiratory failure with boxes secondary to possible Covid 19 Coding Level of Care Code Acute Surgical Services Assistant for [facility] Diagnoses Acute respiratory failure with hypoxia J96.01 Shortness of breath R06.02 Buprenorphine dependence F11.20
[2020-05-10 19:11] LABS: Influenza A by IFA Negative (Negative); Influenza B by IFA Negative (Negative)
[2020-05-10 19:15] LABS: Add Urine Microscopic? YES; Bilirubin Urine Neg (NEGATIVE); Blood Urine Neg (Negative); Glucose Urine UA Norm (Normal); Ketones Urine Negative (Negative); Leukocyte Esterase Urine Negative (Negative); Nitrate Urine Positive (Negative); Protein Urine Neg (Negative); Sulfosalicylic Acid Urine Negative (Negative); Urine Appearance Cloudy (CLEAR); Urine Color Yellow (Yellow); Urobilinogen Urine Norm (Negative); pH Urine 5 (5-7)
[2020-05-10 19:22] LABS: Add Urine Culture? No; Amorphous Sediment Urine 4+; Bacteria Urine 4+; RBC Urine 0-4 /hpf (0-2); Squamous Epithelial Cell Urine 15-25 (0-5)
[2020-05-10] MEDS: enoxaparin 40 mg/0.4 mL Syringe SUBCUT (19:40)
[2020-05-10 20:06] VITALS: RESP 17; O2SAT 99
[2020-05-10] MEDS: morphine 4 mg/mL SDV 1 mL 2 MG IVP (20:06)
[2020-05-10] MEDS: ondansetron 2 mg/ML SDV 2 mL 4 MG IVP (20:06)
[2020-05-10 20:19] LABS: Troponin 5 6HR Delta 0 ng/L (0-12)
[2020-05-10 20:28] LABS: Thyroid Stimulating Hormone 0.78 uIU/mL (0.27-4.20)
[2020-05-10 20:29] LABS: NT Pro B Type Natriuretic Pept 123 pg/mL (0-125); Procalcitonin 0.04 ng/mL (0-0.5)
[2020-05-10 20:42] LABS: Estmated Average Glucose 111; Hemoglobin A1C 5.5 % (4.0-6.0)
--- NOTE | 2020-05-11 06:59 | PC.OT ---
OT EVALUATION ORDERS RECEIVED. WILL AWAIT RESULTS OF COVID TESTING.
[2020-05-12 07:56] LABS: Coronavirus Lab Test PTC SEE REPORT
== END 2020-05-10 21:59 | disposition left against medical advice (07) ==
LOC: ER 19:00 → ICU 21:58
PROVIDERS: Family Medicine; Emergency Provider Family Medicine; PCP Family Medicine
DX: J96.01 Acute respiratory failure with hypoxia (principal); F17.210 Nicotine dependence, cigarettes, uncomplicated
CPT/HCPCS: 12345; 36415; 36600; 70450; 71045; 71275; 80306; 81001; 81003; 81025; 82140; 82803; 83036; 83605; 83880; 84145; 84443; 84484; 85025; 85378; 85384; 85610; 85730; 87040; 87635; 87804; 93005; 96361; 96372; 96374; 96375; 99284; J1650; J2270; J2405; J7030; Q9967

== ENCOUNTER 2021-09-25 15:34 | Emergency (ER) | payer OTHER, SELFPAY ==
[2021-09-25 15:46] VITALS: BP 111/88; PULSE 83; RESP 18; TEMP 37.1; O2SAT 94; BMI 44.6
--- NOTE | 2021-09-25 15:55 | XRR_ITS ---
PROCEDURE INFORMATION: Exam: XR Left Femur Exam date and time: 09/25/2021 3:55 PM Age: 31 years old Clinical indication: Injury or trauma; Fall; Blunt trauma; Thigh or upper leg; Left; Additional info: Fall/ L posterior injury, eval for retained wood TECHNIQUE: Imaging protocol: XR Left femur. Views: 2 views. Total images: 4 COMPARISON: CT abdomen pelvis w con* [id number] 08/26/2018 1:32 PM FINDINGS: Bones/joints: No radiographically visible acute osseous abnormality. Soft tissues: Soft tissues without visible evidence of edema, swelling, contusion, emphysema, or radiopaque foreign body. Other findings: Obesity. XR/XR femur LT min 2V* [id number] IMPRESSION: Nonacute. Radiation Dose CTDIVOL = (mGy): DLP = (mGy-cm)
[2021-09-25] MEDS: acetaminophen 500 mg Tablet PO (16:05)
[2021-09-25] MEDS: tetanus-dipt-pertussis 0.5 mL SDV IM (16:06)
--- NOTE | 2021-09-25 17:23 | ED_ITS ---
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 She reports a left inner thigh wound. She denies any other injuries in the incident. Patient denies any other complaints at this time clear chest, shortness breath, palpitation, lightheadedness, fever/chill, abdominal complaints, complaints or other signs of injuries. Is not on any a nticoagulation. Patient does not think the wound has any retained foreign object sensations. Patient does not remember her last tetanus. Onset: 2 hr s ago Duration:2 hrs Location:work Severity:moderate Review of Systems Narrative: Constitutional: No fever, no chills. HEENT: No vision changes CV: No chest pain, no palpitations PULM: no cough, no dyspnea. GI: No abdominal pain, no N/V/D. : No dysuria MSKEL: No muscle pain SKIN: +R inner thigh bruise and hematoma NEURO: No headache, no focal weakness. HEME: No visible bruises PSYCH: Normal mood PFSH ED PFSH: Medical History (Updated 09/25/21 @ 16:54 by Jonathan Boone MD) Nephrolithiasis Surgical History History of appendectomy History of section History of cholecystectomy History of ventral hernia repair Family History Other CAD (coronary artery disease) Social History Smoking and tobacco status: current every day smoker cigarettes Packs smoked per day: 1 Alcohol intake: never Physical Exam Narrative: EXAM NARRATIVE: Head: Atraumatic Eyes: PERRL, conjunctiva without injection ENT: Mucous membrane moist NECK: Supple, ROM intact LUNGS: LCTAB, no crackles/rhonchi CV: RRR ABDOMEN: Soft, nontender in all quadrants EXTREMITY: Normal ROM, +L inner thigh hematoma, no compartment syndrome of the thigh, no other visible injuries to the lower extremiites, neurovascular exam intact b/l, 2+DP/PT pulses b/l, cap reifll< 2 seconds SKIN: +moderate hematoma with surface abrasions over the L inner thigh that is tender to palpation, no papable fluctuance/warmth over the affected lesion NEURO: Awake and alert, no focal motor deficits PSYCH: Normal mood and affect Course Vital Signs: Vital signs: Vital Signs Temperature 98.8 F 09/25/21 15:46 Pulse Rate 83 09/25/21 15:46 Respiratory Rate 18 09/25/21 15:46 Blood Pressure 111/88 09/25/21 15:46 Pulse Oximetry 94 09/25/21 15:46 MDM - General Adult MDM Narrative: Medical decision making narrative: Patient is a 31-year-old female without any significant medical medical history presents emergency room after drinking her left inner thigh while at work. On exam, patient has a mild hematoma with superficial abrasion over the thigh lesion that is tender to palpation. Present, given no fluctuance, warmth, I do not suspect that this is an infected lesion. Patient does not have any retained foreign object sensation in the lesion. X-ray did not show any signs of chip Hoffman retained foreign object in the lesion. No other signs of injury or trauma in the left lower extremity. Patient received Toradol, Percocet in the emergency room with improvement in symptoms. Patient received Tdap in the emergency room. The present time, the wound has been extensively irrigated. Bacitracin ointment has been applied patient has tube for bacitracin with instruction for daily use. The significance of the wound and possible contamination, decision was made to start patient on prophylactic antibiotics to go home with. Rx: Keflex 500 mg twice daily x7 days Disposition: Discharge. Patient counseled regarding diagnostic impression, treatment plan. Patient given ED strict return precautions to return for continuation, worsening, or development of new symptoms. Instructed to f/u w/ PCP regarding symptoms today. Patient verbalized understanding. Patient is given strict return precaution for any signs of necrotizing soft tissue infection, infected wound, or any new or concerning complaints. Also given return function for any signs of tetanus given the nature of the wound. Discharge Plan Discharge Patient Disposition: Home Clinical Impression: Wound of thigh Condition: Stable Prescriptions: New acetaminophen 500 mg tablet 500 mg PO Q6H PRN (Reason: pain) 7 Days Qty: 24 RF: 0 cephalexin 500 mg capsule 500 mg PO Q12H 10 Days Qty: 20 RF: 0 No Action gabapentin 600 mg tablet 600 mg PO TID RF: 0 buprenorphine-naloxone 8-2 mg film 1 film sublingual BID RF: 0 Discharge Orders: Discharge ED (Routine); Ordered 09/25/21 Ordered By: Jonathan Boone Referrals: Colt Rios MD [Primary Care Provider] - Discharge Diet: Advance as tolerated Discharge Activity: Resume usual activity Patient Instructions: Abrasion (ED) Activity Restrictions/Additional Instructions: Please use your ointment daily. Please take your antibiotics as instructed. Come back to the emergency room you have any fever or chills, worsening wound drainage, pain, redness. Come back to the emergency you have any new concerning complaints. Please follow-up with your primary care provider in the next 48 to 72 hours for repeat wound check. Come back to the emergency room have any change in the arms or legs, or jaw pain as this may be a sign of tetanus. Coding Level of Care Code ED Board Of Directors for Gael Villa
[2021-09-25 17:27] VITALS: RESP 16
[2021-09-25] MEDS: bacitracin ointment Pkt 1 EACH TOPICAL (17:27)
[2021-09-25] MEDS: oxyCODONE-APAP 5-325 mg Tablet 1 TAB PO (17:27)
[2021-09-25 18:57] VITALS: BP 93/75; PULSE 75; RESP 14; O2SAT 95
== END 2021-09-25 17:56 | disposition home or self-care (01) ==
PROVIDERS: Emergency Provider Emergency Medicine; PCP Family Medicine
DX: S70.312A Abrasion, left thigh, initial encounter (principal); W13.3XXA Fall through floor, initial encounter; Y99.0 Civilian activity done for income or pay; F17.210 Nicotine dependence, cigarettes, uncomplicated
CPT/HCPCS: 73552; 90471; 90715; 99283

== ENCOUNTER 2023-10-14 11:24 | Emergency (ER) | payer SELFPAY ==
[2023-10-14 11:32] VITALS: BP 132/84; PULSE 87; RESP 16; TEMP 36.7; O2SAT 97; BMI 39.9
[2023-10-14 11:50] LABS: Basophils % 0.2 %; Eosinophils # 0.1 10^3/uL (0.0-0.8); Eosinophils % 0.8 %; Hematocrit 45.6 % (36-47); Lymphocytes # 1.2 10^3/uL (0.8-4.8); Lymphocytes % 11.8 %; Mean Corpuscular HGB Conc 32.5 g/dL (30-55); Mean Corpuscular Hemoglobin 31.5 pg (27-33); Mean Platelet Volume 10.4 fL (7.4-10.4); Monocytes # 0.4 10^3/uL (0.2-0.9); Monocytes % 3.8 %; Neutrophils # 8.44 10^3/uL (1.8-7.7); Neutrophils % 83.2 %; Nucleated Red Blood Cells % 0 %; Platelet Count 207 10^3/cmm (157-399); Red Cell Distribution Width 13.2 % (12.1-15.1); White Blood Count 10.15 10^3/uL (3.29-11.43)
[2023-10-14 12:07] LABS: Alanine Aminotransferase 24 U/L (0-33); Alkaline Phosphatase 71 U/L (35-105); Aspartate Amino Transferase 17 U/L (0-32); Blood Urea Nitrogen 10 mg/dL (6-20); Calcium 9.3 mg/dL (8.5-10.5); Carbon Dioxide 28 mmol/L (22-29); Chloride 102 mmol/L (98-107); Globulin 3.1 g/dL (1.3-4.6); Glomerular Filtration Rate 95.8 mL/min (90-130); Glucose 113 mg/dL (65-115); Lipase 19 U/L (13-60); Osmolality Calculated 286 mOsm/kg (285-295); Sodium 138 mmol/L (136-145); Total Bilirubin 0.5 mg/dL (0.15-1.2); Total Protein 7.1 g/dL (6.6-8.7)
[2023-10-14 12:36] LABS: HCG, Serum Qual Negative (Negative)
== END 2023-10-14 13:33 | disposition left against medical advice (07) ==
PROVIDERS: Emergency Provider Emergency Medicine; PCP Family Medicine
DX: Z53.21 Procedure and treatment not carried out due to patient leaving prior to being seen by health care provider (principal)
CPT/HCPCS: 36415; 80053; 83690; 84703; 85025

== ENCOUNTER 2023-12-11 05:32 | Emergency (ER) | payer SELFPAY ==
[2023-12-11 05:36] VITALS: BP 132/79; PULSE 88; RESP 18; TEMP 36.3; O2SAT 96; BMI 39.8
[2023-12-11 05:41] VITALS: PULSE 73; RESP 16; O2SAT 95
--- NOTE | 2023-12-11 06:03 | W.ED.FALL ---
HPI - Fall General: Chief Complaint: Fall Stated Complaint: fall Time Seen by Provider: 12/11/23 05:49 Source: patient Mode of arrival: wheelchair History of Present Illness: 33-year-old female who presents to the emergency room with plaints left knee and ankle pain and abrasion after a fall. Patient is leaving her home going down the stairs to come to the emergency room with her daughter when she stumbled and fell she has an abrasion anterior portion of her left knee echo placed there. In her left ankle. She was assisted by a friend after the fall. She states she felt like she cannot bear full weight on it and she was brought to the exam room via wheelchair. She not strike her head no loss consciousness MD complaint: fall Onset (ago): minute(s) Fall from: standing Place fall occurred: home Loss of consciousness: None Prolonged down time: no Symptoms prior to fall: none Context: tripped/slipped Location of injury - extremities: Left: knee and ankle Associated symptoms-after fall: Reports difficulty walking; Denies abdominal pain, chest pain, confusion, headache(s), neck pain, numbness, short of breath, vertigo or weakness Review of Systems Const: Denies: fever(s) or chills Card: Denies: chest pain Resp: Denies: dyspnea GI: Denies: abdominal pain Musc: Reports: joint pain; Denies: neck pain or back pain Neuro: Reports: difficulty walking; Denies: headache(s), vertigo or confusion [facility] ED PFSH: Medical History (Updated 12/19/23 @ 00:00 by JENNY Trevizo) Nephrolithiasis Surgical History History of section History of ventral hernia repair History of appendectomy History of cholecystectomy Family History Other CAD (coronary artery disease) Social History Smoking and tobacco/nicotine status: current every day tobacco/nicotine user cigarettes Packs smoked per day: 1 Alcohol intake: never Physical Exam Const: COMMON NORMALS: no acute distress GENERAL APPEARANCE: cooperative and comfortable ORIENTATION/CONSCIOUSNESS: Yes awake, Yes oriented to person, Yes oriented to place and Yes oriented to time HENMT: COMMON NORMALS: normocephalic, atraumatic and hearing grossly normal bilaterally HEAD & SCALP: normocephalic and atraumatic Resp: COMMON NORMALS: normal respiratory effort, No retractions, No use of accessory muscles and clear to auscultation bilaterally AUSCULTATION: clear to auscultation bilaterally Cardio: COMMON NORMALS: regular rate, regular rhythm and No murmurs present (Cardio) RATE: regular rate RHYTHM: regular rhythm Extremity: COMMON NORMALS: normal to inspection, capillary refill normal, no clubbing, cyanosis or edema, no calf tenderness and no pedal edema OTHER: Abrasion left anterior knee and lateral to the midline no full-thickness laceration. Patient would not tolerate further exam. Examination ankle no swelling no ecchymosis no abrasion or laceration complains of pain with dorsi and plantarflexion. Would not tolerate further exam. Dorsalis pedis posterior tibialis pulse normal Neuro: SENSORIUM/ORIENTATION: Yes oriented to person, Yes oriented to place and Yes oriented to time Skin: COMMON NORMALS: no rashes or lesions noted GENERAL SKIN EXAM: no rashes or lesions noted Course Vital Signs: Vital signs: Vital Signs Temperature 97.3 F L 12/11/23 05:36 Pulse Rate 73 12/11/23 05:41 Respiratory Rate 15 12/11/23 07:32 Blood Pressure 132/79 12/11/23 05:36 Pulse Oximetry 100 12/11/23 07:32 Oxygen Delivery Me thod Room Air 12/11/23 05:41 MDM - Fall Medical Decision Making Left ankle and knee sprain no acute fractures. Supportive cares anti-inflammatories as needed Medical Records I reviewed the patient's medical records. Lab Data I reviewed the patient's lab results. All radiology interpretation(s) finalized by discharge Discharge Plan Discharge Patient Disposition: Home Clinical Impression: Left ankle sprain, Left knee sprain Condition: Stable Prescriptions: No Action mupirocin calcium 2 % cream 1 applic topical BID Qty: 30 0RF gabapentin 600 mg tablet 600 mg PO TID buprenorphine-naloxone 8-2 mg film 1 film sublingual BID Discharge Orders: Discharge ED (Routine); Ordered 12/11/23 Ordered By: Henry Jeffries Referrals: Colt Rios MD [Primary Care Provider] - Discharge Diet: Usual diet Discharge Activity: Resume usual activity Patient Instructions: Ankle Sprain (ED), Knee Sprain (ED), Opioid Safety, Pain Management Activity Restrictions/Additional Instructions: Thank you for choosing [facility] for your healthcare needs today. Please realize this is an emergency room and that we are providing you with a medical screening exam and this may not be complete and all inclusive of all the testing and or work up that you may need to determine your ailment or severity of your illness. It is very important that you follow up as instructed or that you return to the Emergency Department should you have concerns or if your condition changes or worsens in any way. Stand Alone Forms: Work/School Release Coding Level of Care Code ED Skiver Operator for [facility]
--- NOTE | 2023-12-11 06:10 | XR_ITS ---
WS: [id number] XR knee LT 3V* [id number] REASON FOR EXAM: trauma FINDINGS: No fracture identified. Mild narrowing of the medial knee joint space with mild subchondral sclerosis. Lateral knee joint space and the patellofemoral joint space are intact and well preserved. No soft tissue abnormality. IMPRESSION: No acute abnormality. Mild osteoarthritis of the left knee.
--- NOTE | 2023-12-11 06:10 | XR_ITS ---
WS: [id number] XR ankle LT min 3V* [id number] REASON FOR EXAM: trauma FINDINGS: Soft tissue swelling around the ankle. No fracture is identified. Joint spaces are intact and well preserved. Significant subchondral sclerosis and osteophytosis in the lateral clear space. IMPRESSION: No acute abnormality Moderate osteoarthritis.
[2023-12-11] MEDS: ibuprofen 800 mg tablet PO (06:29)
[2023-12-11] MEDS: tetanus-dipt-pertussis 0.5 mL SDV IM (06:30)
[2023-12-11 07:32] VITALS: RESP 15; O2SAT 100
== END 2023-12-11 07:33 | disposition home or self-care (01) ==
PROVIDERS: Emergency Provider Family Medicine; PCP Family Medicine
DX: S93.402A Sprain of unspecified ligament of left ankle, initial encounter (principal); S83.92XA Sprain of unspecified site of left knee, initial encounter; F17.210 Nicotine dependence, cigarettes, uncomplicated; W10.8XXA Fall (on) (from) other stairs and steps, initial encounter; S80.212A Abrasion, left knee, initial encounter; Z23 Encounter for immunization
CPT/HCPCS: 29530; 73562; 73610; 90471; 90715; 99283

== ENCOUNTER 2023-12-23 11:51 | Emergency (ER) | payer SELFPAY ==
[2023-12-23 12:00] VITALS: BP 112/70; PULSE 77; RESP 15; TEMP 37.1; O2SAT 96; BMI 36.8
[2023-12-23 12:26] VITALS: BP 137/72; PULSE 75; RESP 14; O2SAT 97
--- NOTE | 2023-12-23 12:27 | CT_ITS ---
WS: [id number] CT ABDOMEN PELVIS TECHNIQUE: Contrast-enhanced CT of the abdomen and pelvis with coronal and sagittal reformatted image s. CLINICAL INFORMATION: abdominal pain vomiting COMPARISON: 2018 DLP: 1011.[address] scans at [facility] use at least one of these dose optimization techniques: automated e xposure control; mA and/or kV adjustment per patient size (includes targeted exams where dose is matc hed to clinical indication); or iterative reconstruction. FINDINGS: Prior cholecystectomy. Evidence of prior appendectomy. Slight atelectasis in the lung bases. Diffuse fatty infiltration of the liver. Mild hepatomegaly. Geovanna or cholecystectomy. Normal portal vein and splenic vein. Normal pancreatic parenchymal enhancement. N ormal spleen. Normal GE junction. Adrenal glands are normal. No hydronephrosis in either kidney. A few tiny nonobstructing calyceal tip calculi. Normal caliber abdominal aorta. Celiac and SMA are patent. Normal sigmoid colon. Mild hepatic flexure and proximal transverse colon constipation. Somewhat prominent submucosal enhancement involving the distal ileal small bowel loops which can be seen with small bowel enteritis. No evidence of high-grad e small or large bowel obstruction. Chronic bilateral pars defects L5-S1 with sclerosis. No significa nt anterolisthesis. No adenopathy in the abdomen or pelvis. No other suspicious findings. IMPRESSION: 1. Mild hepatomegaly with diffuse fatty infiltration of the liver. 2. Prior cholecystectomy and appendectomy. 3. Mild hepatic flexure and proximal transverse colon constipation. 4. Somewhat prominent submucosal enhancement involving the distal ileal small bowel loops can be see n with small bowel enteritis. 5. Chronic bilateral pars defects L5-S1 with sclerosis.
[2023-12-23 12:41] LABS: Basophils % 0.4 %; Eosinophils # 0.1 10^3/uL (0.0-0.8); Eosinophils % 1.2 %; Hematocrit 43.1 % (36-47); Lymphocytes # 1.7 10^3/uL (0.8-4.8); Lymphocytes % 17.2 %; Mean Corpuscular HGB Conc 33.4 g/dL (30-55); Mean Corpuscular Hemoglobin 31.6 pg (27-33); Mean Corpuscular Volume 94.7 fl (85-98); Mean Platelet Volume 10.2 fL (7.4-10.4); Monocytes # 0.5 10^3/uL (0.2-0.9); Monocytes % 5.4 %; Neutrophils # 7.44 10^3/uL (1.8-7.7); Neutrophils % 75.4 %; Nucleated Red Blood Cells % 0 %; Platelet Count 206 10^3/cmm (157-399); Red Blood Count 4.55 10^6/uL (3.85-5.65); Red Cell Distribution Width 13.3 % (12.1-15.1); White Blood Count 9.87 10^3/uL (3.29-11.43)
--- NOTE | 2023-12-23 12:45 | ED_ITS ---
HPI - Abdominal Pain 2 General: Chief Complaint: Abdominal Pain Stated Complaint: abd pain, n/v Time Seen by Provider: 12/23/23 12:08 History of Present Illness: 33-year-old female who presents with rig ht upper quadrant abdominal pain that woke her up this morning. She states this persisted and she has had associated nausea and vomiting. The patient also does report constipation. She has had a previous cholecystectomy as well as an appendectomy. She denies fever. She denies dysuria or hematuria. She states she has had kidney stones and this pain feels different than her previous kidney stone pain. No radiation through to her back. Associated Symptoms: Reports constipation, nausea and vomiting; Denies coffee ground emesis, dysuria, fever(s) and hematemesis Review of Systems 2 Const: Denies: fever(s) or change in appetite Card: Denies: chest pain GI: Reports: abdominal pain, nausea, vomiting and constipation; Denies: hematemesis or coffee ground emesis : Denies: flank pain, difficulty voiding or dysuria PFSH ED 2 PFSH: Medical History (Updated 12/23/23 @ 14:27 by Damaris Michel MD) Nephrolithiasis Surgical History History of section History of ventral hernia repair History of appendectomy History of cholecystectomy Family History Other CAD (coronary artery disease) Social History Smoking and tobacco/nicotine status: current every day tobacco/nicotine user cigarettes Packs smoked per day: 1 Alcohol intake: never Physical Exam 2 Const: COMMON NORMALS: no acute distress GENERAL APPEARANCE: cooperative and comfortable ORIENTATION/CONSCIOUSNESS: Yes awake, Yes oriented to person, Yes oriented to place and Yes oriented to time HENMT: COMMON NORMALS: normocephalic, atraumatic and hearing grossly normal bilaterally HEAD & SCALP: normocephalic and atraumatic Resp: COMMON NORMALS: normal respiratory effort, No retractions, No use of accessory muscles and clear to auscultation bilaterally AUSCULTATION: clear to auscultation bilaterally Cardio: COMMON NORMALS: regular rate, regular rhythm and No murmurs present (Cardio) RATE: regular rate RHYTHM: regular rhythm GI: COMMON NORMALS: Soft to palpation INSPECTION: Yes normal to inspection AUSCULTATION: Yes normoactive bowel sounds PALPATION: Yes Soft to palpation, No Firmness to palpation present (GI), Yes Tenderness to palpation present (GI) Details: RUQ, No Guarding due to palpation present (GI), No Rigid due to palpation and No Rebound tenderness present Extremity: COMMON NORMALS: normal to inspection, capillary refill normal, no clubbing, cyanosis or edema, no calf tenderness and no pedal edema OTHER: Abrasion left anterior knee and lateral to the midline no full-thickness laceration. Patient would not tolerate further exam. Examination ankle no swelling no ecchymosis no abrasion or laceration complains of pain with dorsi and plantarflexion. Would not tolerate further exam. Dorsalis pedis posterior tibialis pulse normal Neuro: SENSORIUM/ORIENTATION: Yes oriented to person, Yes oriented to place and Yes oriented to time Skin: COMMON NORMALS: no rashes or lesions noted GENERAL SKIN EXAM: no rashes or lesions noted Course 2 Vital Signs: Vital signs: Vital Signs Temperature 98.7 F 12/23/23 12:00 Pulse Rate 63 12/23/23 14:30 Respiratory Rate 16 12/23/23 13:18 Blood Pressure 128/74 12/23/23 14:30 Pulse Oximetry 97 12/23/23 14:30 Oxygen Delivery Me thod Room Air 12/23/23 14:30 MDM - Abdominal Pain Medical Decision Making 33-year-old female who presents with right upper quadrant abdominal pain. She has had a previous cholecystectomy. Differential includes constipation, ureterolithiasis, pyelonephritis, colitis. Patient's had an IV placed and labs obtained. She has been given IV Zofran for nausea and IV morphine for pain. She is felt laboratory studies obtained which were unremarkable. CT of the abdomen and pelvis has been obtained and does show changes most likely consistent with constipation as the cause of her pain. She does have some small bowel loops that could suggest mild enteritis but clinically I do not feel she has enteritis. Will discharge the patient with a bottle of magnesium citrate. Have also recommended that she take MiraLAX and Colace daily. She needs to eat a high-fiber diet. Return if she has increased pain, persistent vomiting, fever. If she has not had results within 6 to 8 hours, she should repeat the magnesium citrate Differential Diagnosis Likely abdominal pain, calculus of kidney, constipation, diverticulitis and gastroenteritis Lab Data Patient's white blood cell count is normal. Electrolytes are normal. She is negative for UTI. LFTs are unremarkable. 12/23/23 12:35 12/23/23 12:35 Labs/Radiology: Laboratory Results WBC 9.87 10^3/uL (3.29-11.43) 12/23/23 12:35 RBC 4.55 10^6/uL (3.85-5.65) 12/23/23 12:35 Hgb 14.40 g/dL (11.27-16.99) 12/23/23 12:35 Hct 43.1 % (36-47) 12/23/23 12:35 MCV 94.7 fl (85-98) 12/23/23 12:35 MCH 31.6 pg (27-33) 12/23/23 12:35 MCHC 33.4 g/dL (30-55) 12/23/23 12:35 RDW 13.3 % (12.1-15.1) 12/23/23 12:35 Plt Count 206 10^3/cmm (157-399) 12/23/23 12:35 MPV 10.2 fL (7.4-10.4) 12/23/23 12:35 Neut % (Auto) 75.4 % 12/23/23 12:35 Lymph % (Auto) 17.2 % 12/23/23 12:35 [place] % (Auto) 5.4 % 12/23/23 12:35 Eos % (Auto) 1.2 % 12/23/23 12:35 Baso % (Auto) 0.4 % 12/23/23 12:35 Neut # (Auto) 7.44 10^3/uL (1.8-7.7) 12/23/23 12:35 Lymph # (Auto) 1.7 10^3/uL (0.8-4.8) 12/23/23 12:35 [place] # (Auto) 0.5 10^3/uL (0.2-0.9) 12/23/23 12:35 Eos # (Auto) 0.1 10^3/uL (0.0-0.8) 12/23/23 12:35 Baso # (Auto) 0.0 10^3/uL (0.0-0.1) 12/23/23 12:35 Nucleated RBC % (auto) 0 % 12/23/23 12:35 Nucleated RBCs # 0.0 /100WBC 12/23/23 12:35 Sodium 139 mmol/L (136-145) 12/23/23 12:35 Potassium 4.4 mmol/L (3.5-5.1) 12/23/23 12:35 Chloride 105 mmol/L (98-107) 12/23/23 12:35 Carbon Dioxide 26 mmol/L (22-29) 12/23/23 12:35 Anion Gap 12.4 (5-19) 12/23/23 12:35 BUN 9 mg/dL (6-20) 12/23/23 12:35 Creatinine 0.6 mg/dL (0.5-0.9) 12/23/23 12:35 GFR Calculation 114.4 mL/min (90-130) 12/23/23 12:35 Glucose 96 mg/dL (65-115) 12/23/23 12:35 Calculated Osmolality 287 mOsm/kg (285-295) 12/23/23 12:35 Calcium 8.8 mg/dL (8.5-10.5) 12/23/23 12:35 Total Bilirubin 0.5 mg/dL (0.15-1.2) 12/23/23 12:35 AST 57 U/L (0-32) H 12/23/23 12:35 ALT 97 U/L (0-33) H 12/23/23 12:35 Alkaline Phosphatase 73 U/L (35-105) 12/23/23 12:35 Total Protein 7.1 g/dL (6.6-8.7) 12/23/23 12:35 Albumin 4.1 g/dL (3.5-5.2) 12/23/23 12:35 Globulin 3.0 g/dL (1.3-4.6) 12/23/23 12:35 Lipase 14 U/L (13-60) 12/23/23 12:35 HCG, Qual Negative (Negative) 12/23/23 13:00 Urine Color Yellow (Yellow) 12/23/23 13:00 Urine Appearance Clear (CLEAR) 12/23/23 13:00 Urine pH 5 (5-7) 12/23/23 13:00 Ur Specific [place] 1.015 (1.005-1.030) 12/23/23 13:00 Urine Protein Trace (Negative) 12/23/23 13:00 Urine Glucose (UA) Norm (Normal) 12/23/23 13:00 Urine Ketones Negative (Negative) 12/23/23 13:00 Urine Blood Neg (Negative) 12/23/23 13:00 Urine Nitrate Negative (Negative) 12/23/23 13:00 Urine Bilirubin Neg (Negative) 12/23/23 13:00 Urine Urobilinogen 4 mg/dL (Negative) H 12/23/23 13:00 Ur Leukocyte Esterase Trace (Negative) H 12/23/23 13:00 Urine RBC 0-4 /hpf (0-2) H 12/23/23 13:00 Urine WBC 0-4 /hpf (0-5) H 12/23/23 13:00 Ur Squamous Epith Cells 0-4 /hpf (0-5) H 12/23/23 13:00 Amorphous Sediment Not Reportable 12/23/23 13:00 Urine Bacteria Trace /hpf (NONE) 12/23/23 13:00 Urine Mucus 2+ /hpf 12/23/23 13:[address] Abd/Pel: Radiologist's impression: FINDINGS: Prior cholecystectomy. Evidence of prior appendectomy. Slight atelectasis in the lung bases. Diffuse fatty infiltration of the liver. Mild hepatomegaly. Prior cholecystectomy. Normal portal vein and splenic vein. Normal pancreatic parenchymal enhancement. Normal spleen. Normal GE junction. Adrenal glands are normal. No hydronephrosis in either kidney. A few tiny nonobstructing calyceal tip calculi. Normal caliber abdominal aorta. Celiac and SMA are patent. Normal sigmoid colon. Mild hepatic flexure and proximal transverse colon constipation. Somewhat prominent submucosal enhancement involving the distal ileal small bowel loops which can be seen with small bowel enteritis. No evidence of high-grade small or large bowel obstruction. Chronic bilateral pars defects L5-S1 with sclerosis. No significant anterolisthesis. No adenopathy in the abdomen or pelvis. No other suspicious findings. IMPRESSION: 1. Mild hepatomegaly with diffuse fatty infiltration of the liver. 2. Prior cholecystectomy and appendectomy. 3. Mild hepatic flexure and proximal transverse colon constipation. 4. Somewhat prominent submucosal enhancement involving the distal ileal small bowel loops can be seen with small bowel enteritis. 5. Chronic bilateral pars defects L5-S1 with sclerosis. All radiology interpretation(s) finalized by discharge Discharge Plan Discharge Patient Disposition: Home Clinical Impression: Constipation, Abdominal pain Condition: Stable Prescriptions: New dicyclomine 20 mg tablet 20 mg PO QID Qty: 20 0RF ondansetron HCl 4 mg tablet 4 mg PO Q6H PRN (Reason: nausea and vomiting) Qty: 20 0RF No Action mupirocin calcium 2 % cream 1 applic topical BID Qty: 30 0RF gabapentin 600 mg tablet 600 mg PO TID buprenorphine-naloxone 8-2 mg film 1 film sublingual BID Discharge Orders: Discharge ED (Routine); Ordered 12/23/23 Ordered By: Damaris Michel Referrals: Colt Rios MD [Primary Care Provider] - Discharge Diet: Advance as tolerated Discharge Activity: Increase activity as tolerated Patient Instructions: Abdominal Pain (ED), Opioid Safety, Pain Management Activity Restrictions/Additional Instructions: take MiraLAX daily as well as Colace twice daily to help keep your bowels regulated. You need to eat a high-fiber diet. Drink the entire bottle of magnesium citrate. If you have not had significant results within 6 hours, by a another bottle and drink that. Return if you have increased pain, fever, persistent vomiting. Follow-up as needed with your primary care doctor. Coding Level of Care Code ED Jammer Hooker for Gael Villa
[2023-12-23 12:57] LABS: Alanine Aminotransferase 97 U/L (0-33); Albumin Level 4.1 g/dL (3.5-5.2); Alkaline Phosphatase 73 U/L (35-105); Anion Gap 12.4 (5-19); Aspartate Amino Transferase 57 U/L (0-32); Blood Urea Nitrogen 9 mg/dL (6-20); Calcium 8.8 mg/dL (8.5-10.5); Carbon Dioxide 26 mmol/L (22-29); Chloride 105 mmol/L (98-107); Creatinine Clr Calc Pharmacy 149.8096; Glomerular Filtration Rate 114.4 mL/min (90-130); Glucose 96 mg/dL (65-115); Lipase 14 U/L (13-60); Osmolality Calculated 287 mOsm/kg (285-295); Potassium 4.4 mmol/L (3.5-5.1); Sodium 139 mmol/L (136-145); Total Bilirubin 0.5 mg/dL (0.15-1.2); Total Protein 7.1 g/dL (6.6-8.7)
[2023-12-23] MEDS: sodium chloride 0.9% 1,000 ML 999 ML IV (12:57)
[2023-12-23] MEDS: ondansetron 2 mg/ML SDV 2 mL 4 MG IVP (12:58)
[2023-12-23 13:01] VITALS: BP 135/85; PULSE 65; RESP 14; O2SAT 96
[2023-12-23 13:15] LABS: HCG Qualitative Urine. Negative (Negative)
[2023-12-23 13:18] VITALS: RESP 16
[2023-12-23 13:18] LABS: Add Urine Microscopic? YES; Bilirubin Urine Neg (Negative); Blood Urine Neg (Negative); Glucose Urine UA Norm (Normal); Ketones Urine Negative (Negative); Leukocyte Esterase Urine Trace (Negative); Nitrate Urine Negative (Negative); Protein Urine Trace (Negative); Specific Gravity, Urine 1.015 (1.005-1.030); Urine Appearance Clear (CLEAR); Urine Color Yellow (Yellow); Urobilinogen Urine 4 mg/dL (Negative); pH Urine 5 (5-7)
[2023-12-23] MEDS: morphine 4 mg/mL SDV 1 mL IVP (13:18)
[2023-12-23 13:21] LABS: RBC Urine 0-4 /hpf (0-2); Squamous Epithelial Cell Urine 0-4 /hpf (0-5); WBC Urine 0-4 /hpf (0-5)
[2023-12-23 13:22] LABS: Add Urine Culture? No; Bacteria Urine TRACE /hpf; Mucus Urine 2+ /hpf
[2023-12-23] MEDS: iohexol 350 mg/mL 500 mL Btl (per mL) IV (13:33)
[2023-12-23 14:30] VITALS: BP 128/74; PULSE 63; O2SAT 97
[2023-12-23] MEDS: magnesium citrate Btl 296 mL PO (14:56)
[2023-12-23 14:57] VITALS: BP 134/93; PULSE 72; O2SAT 96
== END 2023-12-23 14:58 | disposition home or self-care (01) ==
PROVIDERS: Emergency Provider Emergency Medicine; PCP Family Medicine
DX: K59.00 Constipation, unspecified (principal); R10.11 Right upper quadrant pain; F17.210 Nicotine dependence, cigarettes, uncomplicated
CPT/HCPCS: 74177; 80053; 81001; 81025; 83690; 85025; 96361; 96374; 96375; 99285; J2270; J2405; J7030; Q9967

== ENCOUNTER 2024-03-10 19:05 | Emergency (ER) | payer SELFPAY ==
[2024-03-10 19:13] VITALS: BP 129/69; PULSE 64; RESP 18; TEMP 36.6; O2SAT 96; BMI 39.4
--- NOTE | 2024-03-10 19:41 | ECG_ITS ---
[facility] Test Date: 2024-03-10 Pat Name: Suhail Clayton Department: Room: Gender: Female [employer] Model: : 1990 Requested By: Elly Higginbotham Order Number: [id number] Roberts MD: Juanpablo Peters M.D. Measurements Intervals [place] Rate: 66 P: 9 VT: 140 QRS: 15 QRSD: 94 T: 29 QT: 383 QTc: 401 Interpretive Statements SINUS RHYTHM Compared to ECG 05/10/2020 17:58:21 No significant changes Electronically Signed On 03-11-2024 9:21:07 CDT by Juanpablo Peters M.D. [id number]
[2024-03-10 20:50] LABS: Basophils # 0.1 10^3/uL (0.0-0.1); Basophils % 0.6 %; Eosinophils # 0.1 10^3/uL (0.0-0.8); Eosinophils % 1.7 %; Hematocrit 43.2 % (36-47); Lymphocytes # 2.5 10^3/uL (0.8-4.8); Lymphocytes % 30.4 %; Mean Corpuscular HGB Conc 32.2 g/dL (30-55); Mean Corpuscular Hemoglobin 31.1 pg (27-33); Mean Corpuscular Volume 96.6 fl (85-98); Mean Platelet Volume 10.3 fL (7.4-10.4); Monocytes # 0.5 10^3/uL (0.2-0.9); Neutrophils # 5.07 10^3/uL (1.8-7.7); Neutrophils % 61.1 %; Nucleated Red Blood Cells % 0 %; Platelet Count 217 10^3/cmm (157-399); Red Blood Count 4.47 10^6/uL (3.85-5.65); White Blood Count 8.31 10^3/uL (3.29-11.43)
[2024-03-10 21:09] LABS: Alanine Aminotransferase 17 U/L (0-33); Albumin Level 3.9 g/dL (3.5-5.2); Alkaline Phosphatase 69 U/L (35-105); Anion Gap 12.9 (5-19); Aspartate Amino Transferase 12 U/L (0-32); Blood Urea Nitrogen 10 mg/dL (6-20); Calcium 8.9 mg/dL (8.5-10.5); Carbon Dioxide 26 mmol/L (22-29); Chloride 104 mmol/L (98-107); Creatinine Clr Calc Pharmacy 155.4859; Globulin 3.1 g/dL (1.3-4.6); Glomerular Filtration Rate 114.4 mL/min (90-130); Glucose 85 mg/dL (65-115); Osmolality Calculated 286 mOsm/kg (285-295); Potassium 3.9 mmol/L (3.5-5.1); Sodium 139 mmol/L (136-145); Total Bilirubin 0.3 mg/dL (0.15-1.2)
== END 2024-03-10 21:51 | disposition left against medical advice (07) ==
PROVIDERS: Emergency Medicine; Emergency Provider Family Medicine; PCP Family Medicine
DX: Z53.21 Procedure and treatment not carried out due to patient leaving prior to being seen by health care provider (principal)
CPT/HCPCS: 36415; 80053; 85025; 86140; 93005; 99284

== ENCOUNTER 2024-05-03 07:09 | Observation (INO) | payer OTHER, SELFPAY ==
[2024-05-03] VITALS (12 sets, daily range): BP systolic 102–133; BP diastolic 75–89; PULSE 64–107; RESP 14–18; TEMP 36.6–36.8; O2SAT 94–98; BMI 36.0
--- NOTE | 2024-05-03 07:28 | CTR_ITS ---
PROCEDURE INFORMATION: Exam: CT Abdomen And Pelvis Without Contrast Exam date and time: 05/03/2024 8:44 AM Age: 33 years old Clinical indication: Abdominal pain; Flank; Right; Prior surgery; Surgery date: 6+ months; Surgery type: x 2, hernia, gb, appy; Additional info: Flank pain TECHNIQUE: Imaging protocol: Computed tomography of the abdomen and pelvis without contrast. Radiation optimization: All CT scans at this facility use at least one of these dose optimization techniques: automated exposure control; mA and/or kV adjustment per patient size (includes targeted exams where dose is matched to clinical indication); or iterative reconstruction. COMPARISON: CT abdomen pelvis w con* [id number] 12/23/2023 1:32 PM RADIATION DOSE METRICS: Total DLP (mGy-cm): 1116.63 FINDINGS: Lungs: There is minimal linear scarring or atelectasis involving the right middle lobe and lingula. Liver: There is fatty infiltration of the liver. The liver otherwise has a normal noncontrast appearance. Gallbladder and biliary ducts: There are surgical clips within the gallbladder fossa. Pancreas: There are subtle peripancreatic fat stranding involving the uncinate process and head of the pancreas suggesting mild pancreatitis. Recommend clinical correlation and correlation with laboratory values. Spleen: Normal. No splenomegaly. Adrenal glands: Normal. No mass. Kidneys and ureters: There are multiple nonobstructing renal calculi bilaterally. Stomach and bowel: There are a few scattered colonic diverticula. No bowel wall thickening is appreciated. No large or small bowel dilatation is identified. Appendix: The appendix is not identified. Intraperitoneal space: Unremarkable. No free air. No significant fluid collection. Vasculature: Unremarkable. No abdominal aortic aneurysm. Lymph nodes: Unremarkable. No enlarged lymph nodes. Urinary bladder: Unremarkable as visualized. Reproductive: Unremarkable as visualized. Bones/joints: Unilateral pars defect is noted on the left with contralateral pedicle sclerosis. No blastic or lytic lesions are otherwise noted. Soft tissues: Unremarkable. CT/CT kidney stone [id number] IMPRESSION: 1. Findings suspicious for mild pancreatitis. Recommend clinical correlation and correlation with laboratory values. 2. Bilateral nephrolithiasis. 3. Please see above comments for additional details.
--- NOTE | 2024-05-03 07:30 | ED_ITS ---
HPI - Abdominal Pain 2 General: Chief Complaint: Abdominal Pain Stated Complaint: abd pain Time Seen by Provider: 05/03/24 07:18 Source: patient Mode of arrival: ambulatory History of Present Illness: 33-year-old female presents emergency ro om complaining of right sided abdominal pain. Nurses notes she had localize it to the right lower quadrant when I seen her she localizes more to the right upper quadrant. She has had nausea and vomiting more bilious vomiting. No hematochezia melena hematemesis coffee- ground emesis. She has a history of kidney stones she states she has not had any hematuria is does not feel like what she is experienced in the past with nephrolithiasis. She has previously had a cholecystectomy and appendectomy. MD elicited complaint: abdominal pain Pertinent past history: none Onset (ago): day(s) Location: None Quality: cramping Exacerbating factors: nothing Relieving factors: nothing Associated Symptoms: Reports GI cramping, nausea and poor appetite; Denies anorexia, belching, bloating, change in bowel habits, change in stool character, chills, coffee ground emesis, constipation, diarrhea, dyspepsia, dysuria, excessive flatus, fever(s), heartburn, hematochezia, hematuria, hematemesis, fecal incontinence, loose stools, melena, syncope and vomiting Review of Systems 2 Const: Denies: fever(s) or chills Card: Denies: chest pain or syncope Resp: Denies: dyspnea GI: Reports: abdominal pain, nausea and GI cramping; Denies: vomiting, hematemesis, coffee ground emesis, heartburn, diarrhea, constipation, bloating, belching, excessive flatus, fecal incontinence, change in bowel habits, change in stool character, hematochezia or melena : Denies: dysuria, urinary frequency, urinary urgency or hematuria Musc: Denies: neck pain or back pain Skin/Breast: Denies: rash PFSH ED 2 PFSH: Medical History Nephrolithiasis Surgical History History of section History of ventral hernia repair History of appendectomy History of cholecystectomy Family History Other CAD (coronary artery disease) Social History Smoking and tobacco/nicotine status: current every day tobacco/nicotine user cigarettes Packs smoked per day: 1 Alcohol intake: never Physical Exam 2 Const: GENERAL APPEARANCE: cooperative and comfortable O RIENTATION/CONSCIOUSNESS: Yes awake, Yes oriented to person, Yes oriented to place and Yes oriented to time HENMT: COMMON NORMALS: normocephalic, atraumatic and hearing grossly normal bilaterally HEAD & SCALP: normocephalic and atraumatic Resp: COMMON NORMALS: normal respiratory effort, No retractions, No use of accessory muscles and clear to auscultation bilaterally AUSCULTATION: clear to auscultation bilaterally Cardio: COMMON NORMALS: regular rate, regular rhythm and No murmurs present (Cardio) RATE: regular rate RHYTHM: regular rhythm GI: COMMON NORMALS: No hepatosplenomegaly present AUSCULTATION: Yes normoactive bowel sounds PALPATION: Yes Tenderness to palpation present (GI) (r sided), No Guarding due to palpation present (GI) and Yes No hepatosplenomegaly present Extremity: COMMON NORMALS: normal to inspection, capillary refill normal, no clubbing, cyanosis or edema, no calf tenderness and no pedal edema Neuro: SENSORIUM/ORIENTATION: Yes oriented to person, Yes oriented to place and Yes oriented to time Skin: COMMON NORMALS: no rashes or lesions noted GENERAL SKIN EXAM: no rashes or lesions noted Course 2 Vital Signs: Vital signs: Vital Signs Temperature 97.9 F 05/03/24 07:17 Pulse Rate 86 05/03/24 07:50 Respiratory Rate 14 05/03/24 07:50 Blood Pressure 102/77 05/03/24 07:50 Pulse Oximetry 98 05/03/24 10:34 Oxygen Delivery Me thod Room Air 05/03/24 07:20 MDM - Abdominal Pain Medical Decision Making Patient pain seems to be more epigastric right upper quadrant radiating to her back. CT shows pancreatitis was a mild elevation of her her lipase she denies drinking regularly her triglycerides were normal. Will place on knobs keep n.p.o. pain and nausea medications as needed. Discussed with hospitalist orders written Medical Records I reviewed the patient's medical records. Lab Data I reviewed the patient's lab results. 05/03/24 07:38 05/03/24 07:38 Labs/Radiology: Radiology Impressions Abdomen/Pelvis CT 05/03/24 07:28 IMPRESSION: 1. Findings suspicious for mild pancreatitis. Recommend clinical correlation and correlation with laboratory values. 2. Bilateral nephrolithiasis. 3. Please see above comments for additional details. Laboratory Results WBC 12.24 10^3/uL (3.29-11.43) H 05/03/24 07:38 RBC 4.68 10^6/uL (3.85-5.65) 05/03/24 07:38 Hgb 14.60 g/dL (11.27-16.99) 05/03/24 07:38 Hct 44.7 % (36-47) 05/03/24 07:38 MCV 95.5 fl (85-98) 05/03/24 07:38 MCH 31.2 pg (27-33) 05/03/24 07:38 MCHC 32.7 g/dL (30-55) 05/03/24 07:38 RDW 13.7 % (12.1-15.1) 05/03/24 07:38 Plt Count 172 10^3/cmm (157-399) 05/03/24 07:38 MPV 10.7 fL (7.4-10.4) H 05/03/24 07:38 Neut % (Auto) 81.8 % 05/03/24 07:38 Lymph % (Auto) 10.8 % 05/03/24 07:38 [place] % (Auto) 6.3 % 05/03/24 07:38 Eos % (Auto) 0.4 % 05/03/24 07:38 Baso % (Auto) 0.3 % 05/03/24 07:38 Neut # (Auto) 10.01 10^3/uL (1.8-7.7) H 05/03/24 07:38 Lymph # (Auto) 1.3 10^3/uL (0.8-4.8) 05/03/24 07:38 [place] # (Auto) 0.8 10^3/uL (0.2-0.9) 05/03/24 07:38 Eos # (Auto) 0.1 10^3/uL (0.0-0.8) 05/03/24 07:38 Baso # (Auto) 0.0 10^3/uL (0.0-0.1) 05/03/24 07:38 Nucleated RBC % (auto) 0 % 05/03/24 07:38 Nucleated RBCs # 0.0 /100WBC 05/03/24 07:38 Sodium 136 mmol/L (136-145) 05/03/24 07:38 Potassium 3.7 mmol/L (3.5-5.1) 05/03/24 07:38 Chloride 103 mmol/L (98-107) 05/03/24 07:38 Carbon Dioxide 20 mmol/L (22-29) L 05/03/24 07:38 Anion Gap 16.7 (5-19) 05/03/24 07:38 BUN 9 mg/dL (6-20) 05/03/24 07:38 Creatinine 0.5 mg/dL (0.5-0.9) 05/03/24 07:38 GFR Calculation 141.2 mL/min (90-130) H 05/03/24 07:38 Glucose 119 mg/dL (65-115) H 05/03/24 07:38 Calculated Osmolality 282 mOsm/kg (285-295) L 05/03/24 07:38 Calcium 8.9 mg/dL (8.5-10.5) 05/03/24 07:38 Magnesium 1.6 mg/dL (1.7-2.3) L 05/03/24 07:38 Total Bilirubin 0.6 mg/dL (0.15-1.2) 05/03/24 07:38 AST 10 U/L (0-32) 05/03/24 07:38 ALT 18 U/L (0-33) 05/03/24 07:38 Alkaline Phosphatase 79 U/L (35-105) 05/03/24 07:38 Total Protein 7.0 g/dL (6.6-8.7) 05/03/24 07:38 Albumin 3.8 g/dL (3.5-5.2) 05/03/24 07:38 Globulin 3.2 g/dL (1.3-4.6) 05/03/24 07:38 Triglycerides 79 mg/dL (0-150) 05/03/24 07:38 Lipase 118 U/L (13-60) H 05/03/24 07:38 HCG, Qual Negative (Negative) 05/03/24 07:38 Urine Color Yellow (Yellow) 05/03/24 09:15 Urine Appearance Cloudy (CLEAR) A 05/03/24 09:15 Urine pH 6 (5-7) 05/03/24 09:15 Ur Specific [place] 1.020 (1.005-1.030) 05/03/24 09:15 Urine Protein Neg (Negative) 05/03/24 09:15 Urine Glucose (UA) Norm (Normal) 05/03/24 09:15 Urine Ketones 2+ (Negative) H 05/03/24 09:15 Urine Blood Neg (Negative) 05/03/24 09:15 Urine Nitrate Negative (Negative) 05/03/24 09:15 Urine Bilirubin Neg (Negative) 05/03/24 09:15 Urine Urobilinogen 1 mg/dL (Negative) H 05/03/24 09:15 Ur Leukocyte Esterase Negative (Negative) 05/03/24 09:15 Urine RBC 0-4 /hpf (0-2) H 05/03/24 09:15 Urine WBC 0-4 /hpf (0-5) H 05/03/24 09:15 Ur Squamous Epith Cells 15-25 /hpf (0-5) H 05/03/24 09:15 Calcium Oxalate Crystal 25-40 /hpf H 05/03/24 09:15 Amorphous Sediment Not Reportable 05/03/24 09:15 Urine Bacteria 1+ /hpf (NONE) H 05/03/24 09:15 Urine Mucus 1+ /hpf 05/03/24 09:15 Urine Opiates Screen Negative ng/mL (Negative) 05/03/24 09:15 Ur Barbiturates Screen Negative ng/mL (Negative) 05/03/24 09:15 Ur Phencyclidine Scrn Negative ng/mL (Negative) 05/03/24 09:15 Ur Amphetamines Screen Negative ng/mL (Negative) 05/03/24 09:15 U Benzodiazepines Scrn Negative ng/mL (Negative) 05/03/24 09:15 Urine Cocaine Screen Negative ng/mL (Negative) 05/03/24 09:15 U Marijuana (THC) Screen Positive ng/mL (Negative) H 05/03/24 09:15 All radiology interpretation(s) finalized by discharge Discharge Plan Discharge Condition: Stable Prescriptions: No Action buprenorphine-naloxone 8-2 mg film 1 film sublingual BID ondansetron HCl 4 mg tablet 4 mg PO Q6H PRN (Reason: nausea and vomiting) Qty: 20 0RF gabapentin 800 mg tablet 800 mg PO QID Referrals: Vicky Pope APN [Primary Care Provider] - Coding Level of Care Code ED [employer] for Gael Villa
[2024-05-03] MEDS: ondansetron 2 mg/ML SDV 2 mL 4 MG IVP (07:37)
[2024-05-03] MEDS: sodium chloride 0.9% 1,000 ML 999 ML IV (07:41)
[2024-05-03 07:53] LABS: Basophils % 0.3 %; Eosinophils # 0.1 10^3/uL (0.0-0.8); Eosinophils % 0.4 %; Hematocrit 44.7 % (36-47); Lymphocytes # 1.3 10^3/uL (0.8-4.8); Lymphocytes % 10.8 %; Mean Corpuscular HGB Conc 32.7 g/dL (30-55); Mean Corpuscular Hemoglobin 31.2 pg (27-33); Mean Corpuscular Volume 95.5 fl (85-98); Mean Platelet Volume 10.7 fL (7.4-10.4); Monocytes # 0.8 10^3/uL (0.2-0.9); Monocytes % 6.3 %; Neutrophils # 10.01 10^3/uL (1.8-7.7); Neutrophils % 81.8 %; Nucleated Red Blood Cells % 0 %; Platelet Count 172 10^3/cmm (157-399); Red Blood Count 4.68 10^6/uL (3.85-5.65); Red Cell Distribution Width 13.7 % (12.1-15.1); White Blood Count 12.24 10^3/uL (3.29-11.43)
[2024-05-03 08:15] LABS: Alanine Aminotransferase 18 U/L (0-33); Albumin Level 3.8 g/dL (3.5-5.2); Alkaline Phosphatase 79 U/L (35-105); Anion Gap 16.7 (5-19); Aspartate Amino Transferase 10 U/L (0-32); Blood Urea Nitrogen 9 mg/dL (6-20); Calcium 8.9 mg/dL (8.5-10.5); Carbon Dioxide 20 mmol/L (22-29); Chloride 103 mmol/L (98-107); Globulin 3.2 g/dL (1.3-4.6); Glomerular Filtration Rate 141.2 mL/min (90-130); Glucose 119 mg/dL (65-115); Lipase 118 U/L (13-60); Osmolality Calculated 282 mOsm/kg (285-295); Potassium 3.7 mmol/L (3.5-5.1); Sodium 136 mmol/L (136-145); Total Bilirubin 0.6 mg/dL (0.15-1.2)
[2024-05-03 08:23] LABS: HCG, Serum Qual Negative (Negative)
[2024-05-03 09:39] LABS: Bilirubin Urine Neg (Negative); Blood Urine Neg (Negative); Glucose Urine UA Norm (Normal); Ketones Urine 2+ (Negative); Leukocyte Esterase Urine Negative (Negative); Nitrate Urine Negative (Negative); Protein Urine Neg (Negative); Urine Appearance Cloudy (CLEAR); Urine Color Yellow (Yellow); Urobilinogen Urine 1 mg/dL (Negative); pH Urine 6 (5-7)
[2024-05-03 09:40] LABS: Add Urine Microscopic? YES; Bacteria Urine 1+ /hpf; Calcium Oxalate Crystals Urine 25-40 /hpf; Mucus Urine 1+ /hpf; RBC Urine 0-4 /hpf (0-2); Squamous Epithelial Cell Urine 15-25 /hpf (0-5); WBC Urine 0-4 /hpf (0-5)
[2024-05-03 10:15] LABS: Amphetamines Screen Urine Negative (Negative); Barbiturates Screen Urine Negative (Negative); Benzodiazepines Screen Urine Negative (Negative); Cocaine Screen Urine Negative (Negative); Opiate Screen Urine Negative (Negative); PCP Screen Urine Negative (Negative); THC Screen Urine Positive (Negative)
[2024-05-03] MEDS: metoclopramide 5 mg/mL SDV 2 mL 10 MG IVP (10:32)
[2024-05-03] MEDS: fentaNYL 50 mcg/mL INJ 2mL IVP (10:34)
[2024-05-03 10:37] LABS: Magnesium 1.6 mg/dL (1.7-2.3); Triglycerides 79 mg/dL (0-150)
--- NOTE | 2024-05-03 10:40 | P.HP_ITS ---
Providers/Chief Complaint 2 Admitting Physician: Joseph Pierre MD Primary Care Provider: Vicky Pope APN Chief Complaint: abd pain History of Present Illness Suhail Clayton is a 33 year old female presenting to the emergency department with persistent nausea vomiting upper abdominal pain since yesterday. No diarrhea. No blood in emesis or stool. Last bowel movement this morning. Reports she has been compliant with her Suboxone. No history of prior pancreatitis, no alcohol intake. Reports she has had her gallbladder removed in the past. Denies any fever, radiation of the discomfort, or chest discomfort. Abdominal pain has been persistent since it started, gradually increasing. She has vomited approximately 10 times in the last 24 hours. Review of Systems 2 General: Reports: 10 or more systems reviewed and unremarkable except in HPI and below Card: Denies: chest pain Resp: Denies: dyspnea GI: Reports: abdominal pain, nausea and vomiting; Denies: hematochezia or melena Medications/Allergies Home Medications Medication Instructions Recorded Confirmed Last Taken Type buprenorphine 8 mg-naloxone 2 mg 1 film sublingual BID 05/10/20 05/03/24 05/02/24 History sublingual film ondansetron HCl 4 mg tablet 4 mg PO Q6H PRN nausea and 12/23/23 05/03/24 05/02/24 Rx vomiting #20 tabs gabapentin 800 mg tablet 800 mg PO QID 05/03/24 05/03/24 05/02/24 History Allergies Allergy/AdvReac Type Severity Reaction Status Date / Time prochlorperazine Allergy ADR-Irritab Verified 03/10/24 19:22 [From Compazine] le ranitidine [From Zantac] Allergy ADR-Irritab Verified 03/10/24 19:22 le PFSH Acute 2 PFSH: Medical History Neuropathy Chronic back pain Nephrolithiasis Surgical History History of section History of ventral hernia repair History of appendectomy History of cholecystectomy Family History Other CAD (coronary artery disease) Social History Smoking and tobacco/nicotine status: current every day tobacco/nicotine user cigarettes Packs smoked per day: 1 Alcohol intake: never Vitals/I&O/Wt Last Vital Signs Temp 97.9 F 05/03/24 07:17 Pulse 86 05/03/24 07:50 Resp 14 05/03/24 07:50 BP 102/77 05/03/24 07:50 Pulse Ox 98 05/03/24 10:34 O2 Del Method Room Air 05/03/24 07:20 Weight last 48 hrs Weight 95.254 kg Physical Exam 2 Narrative: General exam is a white female, reporting upper abdominal pain HEENT: Atraumatic normocephalic. Oropharynx clear Neck is supple no lymphadenopathy thyromegaly Cardiovascular regular rate and rhythm without murmur Lungs clear coarse breath sounds. Occasional expiratory wheeze. Abdomen is soft. Tenderness present upper abdomen. Bowel sounds are noted. exam is deferred Extremities no cyanosis clubbing or edema, cap refill brisk Skin no rash Neuro no focal deficits. Data 05/03/24 07:38 05/03/24 07:38 Other Labs: I have ordered an EKG for baseline CT abdomen and pelvis which I reviewed is concerning for mild pancreatitis. Bilateral nephrolithiasis is also noted. Triglyceride level which I ordered a 79. Lipase 118 LFTs, calcium, albumin normal Urinalysis 0-4 reds 0-4 whites THC positive on urine drug screen A&P Assessment and plan (1) Acute pancreatitis: Patient presents with acute pancreatitis. She is having significant vomiting. She is unable to keep p.o. down. Observation status Hydration Clear liquids and tolerated Pain and nausea control Triglyceride level normal Medicine review does not demonstrate any obvious likely cause. She does not have history of alcohol intake, prior pancreatitis, or elevated triglycerides. Protonix 40 mg IV every 12 hours (2) Buprenorphine dependence: Continue buprenorphine Plan Hypomagnesemia. Supplement with 2 g of magnesium IV, recheck tomorrow Nicotine dependence. Encouraged abstinence. She currently refuses nicotine patch. Other medical problems as outlined by past medical history Full code Lovenox for DVT prophylaxis Attestations 2 Medical Necessity Statement*: Will need less than 2 midnight stay for evaluation and treatment of pancreatitis, acute without major electrolyte abnormalities. Diagnoses Acute pancreatitis K85.90 Buprenorphine dependence F11.20 Time Spent (min) 47
[2024-05-03] MEDS: magnesium sulfate premix 2 GM/50 ML PIGGYBACK IV (11:03)
[2024-05-03] MEDS: pantoprazole 40 mg SDV IVP (11:03)
--- NOTE | 2024-05-03 11:11 | ECG_ITS ---
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 Measurements Intervals [place] Rate: 75 P: 7 AR: 129 QRS: 8 QRSD: 92 T: 8 QT: 356 QTc: 400 Interpretive Statements SINUS RHYTHM Compared to ECG 03/10/2024 20:00:30 No significant changes Electronically Signed On 05-03-2024 22:13:13 CDT by Jeanmarie Franklin M.D. [id number]
[2024-05-03] MEDS: HYDROmorphone 1 mg/mL INJ 1 mL 0.5 MG IVP (14:30)
[2024-05-03] MEDS: sodium chloride 0.9% 1,000 ML 150 ML IV (14:31)
[2024-05-03] MEDS: HYDROmorphone 1 mg/mL INJ 1 mL 0.25 MG IVP (15:41)
--- NOTE | 2024-05-03 16:57 | PC.NURSE ---
when answering this pt's call light, pt states she is wanting to go home and asked if I'd call Dr. Pierre to see if it was ok to do so. She says her kids called and were very upset and that she is heartbroken to be away from them. I phoned Dr. Pierre who advised against her leaving. I discussed in detail the risks and consequences of her leaving against medical advice, including worsening symptoms, or permanent disability. Pt states she understands but would like to sign out against medical advice. Dr. Pierre notified and AMA form signed by patient and this nurse. I advised her to strictly adhere to the diet previosly discussed with Dr. Pierre and to return to ER if symptoms worsen. Pt verbalizes understanding.
--- NOTE | 2024-05-04 08:58 | W.PM.EVENTAC ---
Event Note Event Note: Patient went AGAINST MEDICAL ADVICE, 05/03/2014. I was unable to come immediately to bedside. I asked the nurse to give instructions to push fluids, avoid any greasy foods, return for any worsening, follow-up with her primary care provider immediately. I asked the nurse to discuss risks of leaving early including and/or permanent disability.
== END 2024-05-03 16:55 | disposition left against medical advice (07) ==
LOC: ER 07:33 → MEDSURG 05-04 05:46
PROVIDERS: Admitting Provider Internal Medicine; Emergency Provider Family Medicine; PCP Nurse Practitioner Family; Visit Provider Internal Medicine
DX: R10.31 Right lower quadrant pain (principal); R11.14 Bilious vomiting; Z90.49 Acquired absence of other specified parts of digestive tract; F17.210 Nicotine dependence, cigarettes, uncomplicated; Z53.29 Procedure and treatment not carried out because of patient's decision for other reasons
CPT/HCPCS: 36415; 74176; 80053; 80306; 81001; 83690; 83735; 84478; 84703; 85025; 93005; 96365; 96375; 96376; 99285; C9113; G0378; J1170; J2405; J2765; J3010; J3475; J7030

== ENCOUNTER 2025-06-02 14:00 | Emergency (ER) | payer OTHER, SELFPAY ==
[2025-06-02 14:01] VITALS: BP 131/72; PULSE 73; RESP 18; TEMP 37.1; O2SAT 99; BMI 41.9
[2025-06-02 14:10] VITALS: BP 131/72; BP 140/85; BP 146/86; PULSE 70; PULSE 90; PULSE 98
[2025-06-02 14:11] VITALS: PULSE 90; RESP 17; O2SAT 98
--- NOTE | 2025-06-02 14:14 | XRR_ITS ---
PROCEDURE INFORMATION: Exam: XR Chest Exam date and time: 06/02/2025 2:33 PM Age: 34 years old Clinical indication: Cough and dyspnea; Additional info: Dyspnea/cough TECHNIQUE: Imaging protocol: Radiologic exam of the chest. Views: 1 view. COMPARISON: CT angio chest PE protcl [id number] 05/10/2020 3:34 PM FINDINGS: Lungs: No consolidation. Mild atelectasis in the left lower lung. Pleural spaces: Unremarkable. No pleural effusion. No pneumothorax. Heart/Mediastinum: Unremarkable. No cardiomegaly. Bones/joints: Unremarkable. XR/XR chest 1V portable [id number] IMPRESSION: 1. No definite acute finding. 2. Mild atelectasis in the left lower lung. Superimposed infection would be difficult to entirely exclude.
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
[2025-06-02 14:21] LABS: Glucose Urine UA Negative (Normal); Nitrate Urine Negative (Negative); Specific Gravity, Urine 1.013 (1.005-1.030)
--- NOTE | 2025-06-02 14:22 | ED_ITS ---
HPI - Dizziness 2 General: Chief Complaint: Dizziness Stated Complaint: dizzy Time Seen by Provider: 06/02/25 14:03 History of Present Illness: HPI Narrative: 34 yo female presents emergency room wit h dizziness weakness worsens when she stands 3 days ago she had a lap assisted vaginal hysterectomy due to polymenorrhea. She has not had any dysuria urgency or frequency. She did not require transfusion postoperatively. She denies any abdominal pain or chest pain. Bowel and bladder function are normal since surgery. Associated symptoms: Reports malaise; Denies chest pain or chills Related Data Home Medications ?Medication ?Instructions ?Recorded ?Confirmed buprenorphine 8 mg-naloxone 2 mg 1 film sublingual BID 05/10/20 06/02/25 sublingual film gabapentin 800 mg tablet 800 mg PO QID 05/03/2406/02 docusate sodium 100 mg capsule 100 mg PO BID PRN Const ipation 06/02/25 06/02/25 (Stool Softener) ibuprofen 600 mg tablet 600 mg PO QID PRN Pain 06/0206/02/25 ondansetron 8 mg disintegrating 8 mg PO Q8H PRN Nausea 06/02/25 06/02/25 tablet oxycodone-acetaminophen 5 mg-325 1 tab PO Q6H PRN Pain 06/02/25 06/02/25 mg tablet Previous Rx's ?Medication ?Instructions ?Recorded metoclopramide HCl 10 mg tablet 10 mg PO Q6H PRN nause a and 06/02/25 (Reglan) vomiting #15 tabs Allergies Allergy/AdvReac Type Severity Reaction Status Date / Time prochlorperazine (From Allergy ADR-Irritab Verified 06/02/25 14:06 Compazine) le ranitidine (From Zantac) Allergy ADR-Irritab Verified 06/02/25 14:06 le Review of Systems 2 Const: Reports: fatigue and malaise; Denies: fever(s) or chills Card: Denies: chest pain Resp: Denies: dyspnea GI: Denies: abdominal pain : Denies: dysuria, urinary frequency or urinary urgency Musc: Denies: neck pain or back pain Skin/Breast: Denies: rash PFSH ED 2 PFSH: Medical History Neuropathy Chronic back pain Nephrolithiasis Surgical History History of section History of ventral hernia repair History of appendectomy History of cholecystectomy Family History Other CAD (coronary artery disease) Social History Smoking and tobacco/nicotine status: current every day tobacco/nicotine user cigarettes Packs smoked per day: 1 Alcohol intake: never Physical Exam 2 Const: ORIENTATION/CONSCIOUSNESS: Yes awake, Yes oriented to person, Yes oriented to place and Yes oriented to time HENMT: COMMON NORMALS: normocephalic, atraumatic and hearing grossly normal bilaterally HEAD & SCALP: normocephalic and atraumatic Resp: COMMON NORMALS: normal respiratory effort, No retractions, No use of accessory muscles and clear to auscultation bilaterally AUSCULTATION: clear to auscultation bilaterally Cardio: COMMON NORMALS: regular rate, regular rhythm and No murmurs present (Cardio) RATE: regular rate RHYTHM: regular rhythm GI: COMMON NORMALS: Soft to palpation and No hepatosplenomegaly present A USCULTATION: Yes normoactive bowel sounds PALPATION: Yes Soft to palpation, No Tenderness to palpation present (GI), No Guarding due to palpation present (GI) and Yes No hepatosplenomegaly present Extremity: COMMON NORMALS: normal to inspection, capillary refill normal, no clubbing, cyanosis or edema, no calf tenderness and no pedal edema Neuro: SENSORIUM/ORIENTATION: Yes oriented to person, Yes oriented to place and Yes oriented to time Skin: COMMON NORMALS: no rashes or lesions noted GENERAL SKIN EXAM: no rashes or lesions noted Course 2 Vital Signs: Vital signs: Vital Signs Temperature 98.7 F 06/02/25 14:01 Pulse Rate 87 06/02/25 16:40 Respiratory Rate 17 06/02/25 14:11 Blood Pressure 124/79 06/02/25 16:40 Pulse Oximetry 98 06/02/25 16:40 Oxygen Delivery Me thod Room Air 06/02/25 14:11 MDM - Dizziness Medical Decision Making Benign abdominal exam laboratory test unremarkable hemoglobin is stable. Will give patient 1 L fluids discharge home continue discharge instructions she received at the time of surgery. Lab Data 06/02/25 13:46 06/02/25 13:46 Radiology Impressions Chest X-Ray 06/02/25 14:14 IMPRESSION: 1. No definite acute finding. 2. Mild atelectasis in the left lower lung. Superimposed infection would be difficult to entirely exclude. Laboratory Results WBC 10.56 10^3/uL (3.29-11.43) 06/02/25 13:46 RBC 4.15 10^6/uL (3.85-5.65) 06/02/25 13:46 Hgb 13.20 g/dL (11.27-16.99) 06/02/25 13:46 Hct 40.9 % (36-47) 06/02/25 13:46 MCV 98.6 fl (85-98) H 06/02/25 13:46 MCH 31.8 pg (27-33) 06/02/25 13:46 MCHC 32.3 g/dL (30-55) 06/02/25 13:46 RDW 13.3 % (12.1-15.1) 06/02/25 13:46 Plt Count 212 10^3/cmm (157-399) 06/02/25 13:46 MPV 10.5 fL (7.4-10.4) H 06/02/25 13:46 Neut % (Auto) 67.9 % 06/02/25 13:46 Lymph % (Auto) 24.0 % 06/02/25 13:46 [place] % (Auto) 5.1 % 06/02/25 13:46 Eos % (Auto) 1.8 % 06/02/25 13:46 Baso % (Auto) 0.5 % 06/02/25 13:46 Neut # (Auto) 7.18 10^3/uL (1.8-7.7) 06/02/25 13:46 Lymph # (Auto) 2.5 10^3/uL (0.8-4.8) 06/02/25 13:46 [place] # (Auto) 0.5 10^3/uL (0.2-0.9) 06/02/25 13:46 Eos # (Auto) 0.2 10^3/uL (0.0-0.8) 06/02/25 13:46 Baso # (Auto) 0.1 10^3/uL (0.0-0.1) 06/02/25 13:46 Nucleated RBC % (auto) 0 % 06/02/25 13:46 Nucleated RBCs # 0.0 /100WBC 06/02/25 13:46 Sodium 141 mmol/L (136-145) 06/02/25 13:46 Potassium 3.7 mmol/L (3.5-5.1) 06/02/25 13:46 Chloride 101 mmol/L (98-107) 06/02/25 13:46 Carbon Dioxide 28 mmol/L (22-29) 06/02/25 13:46 Anion Gap 15.7 (5-19) 06/02/25 13:46 BUN 9 mg/dL (6-20) 06/02/25 13:46 Creatinine 0.6 mg/dL (0.5-0.9) 06/02/25 13:46 GFR Calculation 113.8 mL/min (90-130) 06/02/25 13:46 Glucose 114 mg/dL (65-115) 06/02/25 13:46 Calculated Osmolality 292 mOsm/kg (285-295) 06/02/25 13:46 Calcium 9.3 mg/dL (8.5-10.5) 06/02/25 13:46 Total Bilirubin 0.4 mg/dL (0.15-1.2) 06/02/25 13:46 AST 22 U/L (0-32) 06/02/25 13:46 ALT 40 U/L (0-33) H 06/02/25 13:46 Alkaline Phosphatase 70 U/L (35-105) 06/02/25 13:46 Total Protein 7.2 g/dL (6.6-8.7) 06/02/25 13:46 Albumin 4.2 g/dL (3.5-5.2) 06/02/25 13:46 Globulin 3.0 g/dL (1.3-4.6) 06/02/25 13:46 Urine Color Yellow (Yellow) 06/02/25 14:14 Urine Appearance Cloudy (CLEAR) A 06/02/25 14:14 Urine pH 7.5 (5-7) 06/02/25 14:14 Ur Specific [place] 1.013 (1.005-1.030) 06/02/25 14:14 Urine Protein Negative (Negative) 06/02/25 14:14 Urine Glucose (UA) Negative (Normal) 06/02/25 14:14 Urine Ketones Negative (Negative) 06/02/25 14:14 Urine Blood Negative (Negative) 06/02/25 14:14 Urine Nitrate Negative (Negative) 06/02/25 14:14 Urine Bilirubin Negative (Negative) 06/02/25 14:14 Urine Urobilinogen 0.2 mg/dL (Negative) 06/02/25 14:14 Ur Leukocyte Esterase Negative (Negative) 06/02/25 14:14 Urine RBC 0-2 /hpf (0-2) 06/02/25 14:14 Urine WBC 0-5 /hpf (0-5) 06/02/25 14:14 Ur Squamous Epith Cells 11-20 /hpf (0-5) H 06/02/25 14:14 Amorphous Sediment Not Reportable 06/02/25 14:14 Urine Bacteria Trace /hpf (NONE) 06/02/25 14:14 Hyaline Casts 0.40 /lpf 06/02/25 14:14 No radiology studies performed this visit Discharge Plan Discharge Patient Disposition: Home Clinical Impression: Post-op pain Condition: Stable Prescriptions: New metoclopramide HCl [Reglan] 10 mg tablet 10 mg PO Q6H PRN (Reason: nausea and vomiting) Qty: 15 0RF No Action buprenorphine-naloxone 8-2 mg film 1 film sublingual BID gabapentin 800 mg tablet 800 mg PO QID ondansetron 8 mg tablet,disintegrating 8 mg PO Q8H PRN (Reason: Nausea) oxycodone-acetaminophen 5-325 mg tablet 1 tab PO Q6H PRN (Reason: Pain) docusate sodium [Stool Softener] 100 mg capsule 100 mg PO BID PRN (Reason: Constipation) ibuprofen 600 mg tablet 600 mg PO QID PRN (Reason: Pain) Discharge Orders: Discharge ED (Routine); Ordered 06/02/25 Ordered By: Henry Jeffries Referrals: Josephine España MD [Primary Care Provider, Family Practice] Discharge Diet: Usual diet Discharge Activity: Limit activity as instructed Patient Instructions: Opioid Safety, Pain Management, Patient Portal & Vivian Instructions Activity Restrictions/Additional Instructions: [facility]. It is very important that you follow up as instructed or that you return to the Emergency Department should you have concerns or if your condition changes or worsens in any way. You were seen today reporting generally not feeling well 3 days postop from your laparoscopic assisted vaginal hysterectomy. Your laboratory tests were normal. Your hemoglobin electrolytes were all normal. We did give you a liter of fluids. Your vital signs were also normal. Recommend continuing to follow the same postop instructions were given immediately after surgery. 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
[2025-06-02 14:24] LABS: Add Urine Microscopic? YES
--- NOTE | 2025-06-02 14:28 | ECG_ITS ---
[facility] Date: 2025-06-02 Pat Name: Suhail Clayton Department: Room: Gender: Female Dehydrator: : 1990 Requested By: Henry Higginbotham Order Number: [id number] Reading MD: CAROLINE SKELTON Measurements Intervals [place] Rate: 64 P: 10 DE: 118 QRS: 32 QRSD: 95 T: 36 QT: 372 QTc: 385 Interpretive Statements SINUS RHYTHM WITH SHORT DE INTERVAL Compared to ECG 05/03/2024 11:11:22 Short DE interval now present Electronically Signed On 06-05-2025 13:59:44 CDT by CAROLINE SKELTON [id number] [id number]
[2025-06-02 14:29] LABS: Hematocrit 40.9 % (36-47); Hemoglobin 13.20 g/dL (11.27-16.99); Mean Corpuscular HGB Conc 32.3 g/dL (30-55); Mean Corpuscular Hemoglobin 31.8 pg (27-33); Mean Corpuscular Volume 98.6 fl (85-98); Nucleated Red Blood Cells % 0 %; Platelet Count 212 10^3/cmm (157-399); Red Blood Count 4.15 10^6/uL (3.85-5.65); White Blood Count 10.56 10^3/uL (3.29-11.43)
[2025-06-02 14:51] LABS: Alanine Aminotransferase 40 U/L (0-33); Albumin Level 4.2 g/dL (3.5-5.2); Alkaline Phosphatase 70 U/L (35-105); Anion Gap 15.7 (5-19); Aspartate Amino Transferase 22 U/L (0-32); Blood Urea Nitrogen 9 mg/dL (6-20); Calcium 9.3 mg/dL (8.5-10.5); Carbon Dioxide 28 mmol/L (22-29); Chloride 101 mmol/L (98-107); Creatinine Clr Calc Pharmacy 159.4170; Globulin 3.0 g/dL (1.3-4.6); Glucose 114 mg/dL (65-115); Osmolality Calculated 292 mOsm/kg (285-295); Potassium 3.7 mmol/L (3.5-5.1); Sodium 141 mmol/L (136-145); Total Protein 7.2 g/dL (6.6-8.7)
[2025-06-02 15:53] VITALS: BP 126/78; PULSE 69; O2SAT 96
[2025-06-02 16:40] VITALS: BP 124/79; PULSE 87; O2SAT 98
== END 2025-06-02 16:41 | disposition home or self-care (01) ==
PROVIDERS: Emergency Provider Family Medicine; PCP Family Medicine
DX: G89.18 Other acute postprocedural pain (principal); F17.210 Nicotine dependence, cigarettes, uncomplicated; Z98.890 Other specified postprocedural states
CPT/HCPCS: 71045; 80053; 81001; 85025; 93005; 96360; 99285; J7030

== ENCOUNTER 2025-10-21 20:53 | Emergency (ER) | payer OTHER, SELFPAY ==
--- OUTSIDE RECORDS SUMMARY | 2025-10-16 05:20 | XMS_ITS ---
Author Organization [facility] Address [address] [place] [address] Care Team Providers Care Rag Inspector Name Role Phone Vicky Pope Primary Care Provider [phone] VICKY POPE Unavailable Unavailable Allergies Allergen (clinical [...] Status Risk Notes Problem Gastroesophageal reflux disease ([id number]) GERD (gastroeso phageal reflux disease) (K21.9) Active [...] Encounter Location Date Provider Diagnosis [facility] Office [address] [address] 10/16/2025 Vickyluis Pope Epigastric pain R10.13 and [...] Suhail CLAYTON MDOB: [birth year] (35 yo F)Acc No.[id number]:10/16/2025 Patient: Javier ashermona Suhail Cisneros Provider: Neftaly Pope APRN :1990 A ge:35 Y S ex:Female Date:10/16/2025 Address:[facility] [address] [facility] Check In:11:02 AM CSTCheck O ut:11:18 AM 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 * Procedure Codes: 3078F DIAST BP < 80 MM HG. 3074F SYST BP LT 130 MM HG. * ARTS MODEL Sign off status: Completed true * Provider: Neftaly Pope APRN Date: 12/17/2024 Generated for Blanquita ohara/Rani/Gómez on: 12/22/2024 08:58 PM FINE ARTS MODEL
--- OUTSIDE RECORDS SUMMARY | 2025-10-21 20:59 | XMS_ITS | Patient Health Record ---
Author Organization [facility] Address [address] [place] [address] Care Team Providers Care Pin Machine Tender Name Role Phone Vicky Pope Primary Care Provider VICKY POPE Unavailable Unavailable Eleanor Meza Unavailable [phone] Emily Maldonado Unavailable [phone] Allergies Allergen (clinical drug ingredient) Drug/Non Drug Allergy documented on EMR Reaction Allergy Type Onset Date Status prochlorperazine Prochlorperazine , Weal (disorder) , Drug Allergy Active Zantac Unknown Drug Allergy Active Compazine Unknown Drug Allergy Active Latex Latex Unknown Allergy Active ranitidine Ranitidine , Weal (disorder) , Drug Allergy Active Results Component Value Reference Range Flag Notes T3 Free [id number] Reviewed date:10/05/2025 02:07:03 PM Interpretation: Performing Lab: Notes/Report: Diagnosis Description: Encounter for screening for other suspected endocrine disorder Free T3 3.9 2.3-4.2 pg/mL T4 [id number] Reviewed date:10/05/2025 02:07:03 PM Interpretation: Performing Lab: Notes/Report: Diagnosis Description: Encounter for screening for other suspected endocrine disorder Free T4 1.25 0.89-1.76 NG/DL Thyroid Stimulating Hormone (TSH) 91632 Reviewed date:10/05/2025 02:07:03 PM Interpretation: Performing Lab: Notes/Report: Diagnosis Description: Encounter for screening for other suspected endocrine disorder TSH 3.414 .358-3.740 MlU/ML Lipid Panel Reflex DLDL 8006 , 78379 Reviewed date:10/05/2025 02:07:03 PM Interpretation: Performing Lab: Notes/Report: Diagnosis Description: Encounter for screening for lipoid disorders Trig 144 NA 5-9 yr 32-105 Adults: >20yrs 5-9 yr 30-101 High 200-499 Very high >=500 10-14 yr 37-131 15-19 yr 37-148 Borderline High 150-199 0-4 yr 34-112 0-4 yr 22-99 10-14 yr 32-125 15-19 yr 39-132 Classification Guidelines:Triglycerides Desirable <150 Children: Female Children: Male Chol 153 <=200 MG/DL HDL 47 39-96 MG/DL 10-14y 37-74 Reference Ranges:HDL 10-14y 37-70 >=20y 40-59 5-9y 36-73 15-19y 30-63 >=20y 40-59 Female: 15-19y 35-74 5-9y 38-75 Male: CH/HDL 3.3 0.0-4.9 RATIO LDL 78 0-130 MG/DL LDL result is inaccurate , if Trig is >400 mg/dl. See DLDL result. COVID-19 RAPID - 45316 Reviewed date:10/05/2025 04:06:47 PM Interpretation: Performing Lab: Notes/Report: COVID19 negative Influenza A/B - 81802 Reviewed date:10/05/2025 04:07:17 PM Interpretation: Performing Lab: Notes/Report: A negative B negative Rapid Strep (Strep A) -15749 Reviewed date:10/05/2025 04:07:01 PM Interpretation: Performing Lab: Notes/Report: Strep negative Schedule Confirmation Reviewed date:03/09/2025 11:00:13 AM Interpretation: Performing Lab: Notes/Report: US Breast Left Limited Schedule Confirmation Reviewed date:03/09/2025 11:00:07 AM Interpretation: Performing Lab: Notes/Report: Mammogram Diag Ar Derrick w/CAD Schedule Confirmation Reviewed date:03/09/2025 11:00:18 AM Interpretation: Performing Lab: Notes/Report: US Breast Right Limited Schedule Confirmation Reviewed date:03/06/2025 06:55:18 AM Interpretation: Performing Lab: Notes/Report: US Breast Right Limited Schedule Confirmation Reviewed date:03/06/2025 06:55:00 AM Interpretation: Performing Lab: Notes/Report: Mammogram Diag Ar Derrick w/CAD Schedule Confirmation Reviewed date:03/06/2025 06:55:09 AM Interpretation: Performing Lab: Notes/Report: US Breast Left Limited Reason For Referral Reason Menstrual abnormalit y Diagnosis 1 Menstrual abnormalit y (N92.6) Referral Organization [facility] Referring Provider First Name Vicky Referring Provider Last Name Niko Referring Provider Speciality Nurse Buzz stevens Referred Provider Darien Galo Jr Referred Provider Specialty Manager Architecture and herbarium worker General Notes Hetal Diaz 02/06 01:32:33 PM >faxed Referral Priority Routine Reason MENSTRUAL ABNORMALIT Y unable to accept, note sent to referring. Diagnosis 1 Irregular menstruati on, unspecified (N92.6) Referring Provider First Name VICKY Referring Provider Last Name NIKO Referring Provider Speciality Family Pra ctice Referred Organization [facility] Referred Provider Eleanor Meza Referred Address [address] [place] [address] ROSY Sou[address],[place], [place],[address], Referred Provider Specialty Manager Architecture and herbarium worker Referral Priority Routine Reason Continued bilateral otalgia Diagnosis 1 Otalgia, bilateral ( H92.03) Referral Organization [facility] Referring Provider First Name Vicky Referring Provider Last Name Niko Referring Provider ity Nurse Buzz stevens Referred Provider Gene Ewing Referred Provider Specialty Ear, nose an d throat surgeon General Notes Hetal Diaz 04/13 03:56:57 PM >faxed Referral Priority Routine Reason Suboxone Diagnosis 1 Opioid dependence in remission (F11.21) Referral Organization [facility] Referring Provider First Name Vicky Referring Provider Last Name Niko Referring Provider Maicol stevens Referred Provider Awilda Muhammad Referred Provider [...] a day; Duration: 7 days 10/16/2025 Active Immunizations Vaccine Route Administration Date Status Comme nts Flucelvax Trivalent, Syringe 0.5 mL, PF Unknown 09/07/2024 Refused Flucelvax Trivalent, Syringe 0.5 mL, PF Unknown 09/27/2025 Refused Influenza (whole), CPT 33276 Inactive Unknown 02/07/2019 Administered Social History Tobacco [...] cigs/day) Section Notes: 08/05/22 PHQ9 09/07/24 PHQ9 08/05/22 PHQ9 09/07/24 PHQ9 08/05/22 PHQ9 09/07/24 PHQ9 08/05/22 PHQ9 09/07/24 PHQ9 08/05/22 PHQ9 09/07/24 PHQ9 08/05/22 PHQ9 09/07/24 PHQ9 08/05/22 PHQ9 09/07/24 PHQ9 04/13/2025 PHQ9 08/05/22 PHQ9 09/07/24 PHQ9 04/13/2025 PHQ9 08/05/22 PHQ9 08/05/22 PHQ9 08/05/22 PHQ9 08/05/22 PHQ9 09/07/24 PHQ9 08/05/22 PHQ9 09/07/24 PHQ9 08/05/22 PHQ9 09/07/24 PHQ9 08/05/22 PHQ9 09/07/24 PHQ9 08/05/22 PHQ9 09/07/24 PHQ9 08/05/22 PHQ9 09/07/24 PHQ9 04/13/2025 PHQ9 08/05/22 PHQ9 09/07/24 PHQ9 04/13/2025 PHQ9 Problems Problem Type SNOMED Code ICD Code Onset Dates Problem Status W/U Status Risk Notes Problem Chronic pain (71036682) Other chronic pain (G89.29) Active confirmed Problem Disorder of breast (70429940) Other specified disorders of breast (N64.89) Active confirmed Problem Irregular menstruation (05040234) Irregular menstruation, unspecified (N92.6) Active confirmed Problem Anxiety (99375707) Anxiety (F41.9) Active confi rmed Problem Tobacco user (491710877) Cigarette nicotine dependence without complication (F17.210) Active confirmed Problem Sinusitis (72794004) Sinusitis (J32.9) Active confirmed Problem Insomnia (953633677) Insomnia (G47.00) Active confirmed Problem Obesity (264423521) Obesity (BMI 30-39.9) (E66.9) Active confirmed Problem Opioid dependence in remission (315658687) Opioid dependence in remission (F11.21) Active confirmed Problem Constipation (98923078) Constipation (K59.00) Active confirmed Problem Irregular menstruation (18585128) Menstrual abnormality (N92.6) Active confirmed Problem Gastroesophageal reflux disease (194407100) GERD (gastroesophage al reflux disease) (K21.9) Active confirmed Vital Signs Heart Rate 86 /min 10/16/2025 Temperature 98.1 degrees Fahrenheit 10/16/2025 Respiratory Rate 20 /min 10/16/2025 Height-cm 165.1 cm 10/16/2025 Oximetry 99 % 10/16/2025 Blood pressure diastolic 76 mm Hg 10/16/2025 Weight-kg 99.34 kg 10/16/2025 Height 65 in 10/16/2025 Blood pressure systolic 118 mm Hg 10/16/2025 Weight 219 lbs 10/16/2025 BMI 36.44 kg/m2 10/16/2025 Encounters Encounter Location Date Provider Diagnosis [facility] [address] [address] 03/21/2025 Emily Maldonado Bronchitis J40 ; Cough R05.9 and Sinusitis J32.9 [facility] [address] [facility] [address] [place] [address] 03/09/2025 Vicky Pope Frequent headaches R51.9 and Lumbar pain M54.50 [facility] [address] [place] [address] 03/01/2025 Vicky Pope Abscess of breast, left N61.1 and Other specified disorders of breast N64.89 [facility] [address] [place] [address] 02/22/2025 Vicky Pope Abscess of breast, left N61.1 [facility] [address] [place] [address] 02/02/2025 Vicky Pope Anxiety F41.9 and Menstrual abnormality N92.6 [facility] [address] [place] [address] 09/27/2025 Vicky Pope Encounter for weight management Z76.89 ; Obesity (BMI 30-39.9) E66.9 ; Encounter for immunization Z23 ; Immunization not carried out because of patient refusal Z28.21 and Cigarette nicotine dependence without complication F17.210 [facility] [address] [place] [address] 04/13/2025 Vicky Pope Otalgia, bilateral H92.03 ; Opioid dependence in remission F11.21 and Depression screen Z13.31 [facility] [address] [place] [address] 11/15/2024 Vicky Pope Acute bronchitis J20.9 [facility] [address] [place] [address] 11/08/2024 Vicky Kasperton Right arm pain M79.601 [facility] [address] [place] [address] 10/16/2025 Vickyangi Kasperton Epigastric pain R10.13 and GERD (gastroesophageal reflux disease) K21.9 [facility] [address] [place] [address] 10/05/2025 Vickyangi Kasperton Fever R50.9 ; Acute bronchitis J20.9 and Acute cough R05.1 [facility] [address] [place] [address] 07/24/2025 Vicky Pope Constipation K59.00 [facility] [address] [place] [address] 03/30/2025 Vicky Pope Acute otitis media with effusion of both ears H65.193 [facility] [address] [place] [address] 10/02/2025 Vicky Pope Lipid screening Z13.220 and Screening for thyroid disorder Z13.29 [facility] [address] [place] [address] 01/16/2025 Vicky Pope Anxiety F41.9 and Insomnia G47.00 [facility] [address] [place] [address] 03/01/2025 Vicky Pope Abscess of breast, left N61.1 and Subareolar mass of left breast N63.42 [facility] [address] [place] [address] 02/07/2025 Eleanor Meza Assessments Encounter Date Diagnosis (ICD Code) Assessment Notes Treatment Notes Treatment Clinical Notes Section Notes 11/08/2024 Right arm pain (ICD-10 - M79.601) [...] injection given. 03/21/2025 Bronchitis (ICD-10 - J40) 03/21/2025 Cough (ICD-10 - R05.9) 03/30/2025 Acute otitis media with effusion of both ears (ICD-10 - H65.193) Increase fluids, take medication as directed. RTC if no improvement with treatment. 04/13/2025 Otalgia, bilateral (ICD-10 - H92.03) 04/13/2025 Opioid dependence in remission (ICD-10 - F11.21) 07/24/2025 Constipation (ICD-10 - K59.00) Constipation: Care Instructions material was printed RTC with any concerns. 09/27/2025 Obesity (BMI 30-39.9) (ICD-10 - E66.9) 09/27/2025 Encounter for weight management (ICD-10 - Z76.89) Increased activity, such as Brisk walking, yoga, hiking. Decrease intake, such as reduce sugar, reduce sodium, reduce portions, reduce carbohydrates, increase water intake, increase fiber. Take medication as directed. RTC 1 month for recheck. Questions asked and answered; discharged to home. 10/02/2025 Screening for thyroid disorder (ICD-10 - Z13.29) 10/02/2025 Lipid screening (ICD-10 - Z13.220) 10/05/2025 Acute bronchitis (ICD-10 - J20.9) Increase fluids, take medication as directed. RTC if no improvement with treatment. Questions asked and answered; discharged to home. 10/05/2025 Fever (ICD-10 - R50.9) 10/16/2025 Epigastric pain (ICD-10 - R10.13) 10/16/2025 GERD (gastroesophageal reflux disease) (ICD-10 - K21.9) Recheck in 1 month. Questions asked and answered; discharged to home. 10/05/2025 Acute cough (ICD-10 - R05.1) 09/27/2025 Encounter for immunization (ICD-10 - Z23) 04/13/2025 Depression screen (ICD-10 - Z13.31) 03/21/2025 Sinusitis (ICD-10 - J32.9) amoxicillin depomedrol/decad shawn im 09/27/2025 Immunization not carried out because of patient refusal (ICD-10 - Z28.21) 09/27/2025 Cigarette nicotine dependence without complication (ICD-10 - F17.210) I spent 3 minutes on tobacco cessation counseling. Patient is not willing to attempt cessation. I will continue to milieu counselor and educate patient in future appointments about the harm and risks of tobacco abuse. I have discussed different medication options with patient today including chantix, wellbutrin, patches, gum and the process of slowly cutting back on nicotine. 03/21/2025 Other Questions asked and answered; discharged to home. 10/02/2025 Other Venipuncture performed. Left hand. One attempt. Pt tolerated well, bleeding controlled with light dressing.[facility] Plan Of Treatment No Information Insurance Providers Payer Name Payer Address Payer Phone Subscriber Number Group Number Insured Name Patient Relationship to Insured Coverage Start Date Coverage End Date Vickie ARANGO [address] [place] [phone] [id number] Suhail Clayton Self - patient is the insured 4 Medications Administered Medication Instructions Date of Administration Dosage Notes DEPO-Medrol 11/15/2024 40 mg [id number] 7-31 Patient tolerated well. DEPO-Medrol 03/09/2025 40 mg [id number] 3-01 Patient tolerated well. DEPO-Medrol 03/21/2025 40 mg ndc 54053-931 3-01 pt tolerated well/instructed to wait 20 min DEPO-Medrol 10/05/2025 40 mg [id number] 3-01Pa tient tolerated well. dexAMETHasone 11/15/2024 4 mg [id number] 419-00 Patient tolerated well. dexAMETHasone 03/09/2025 4 mg [id number]-23757-9 423-00 Patient tolerated well. dexAMETHasone 03/21/2025 4 mg [facility] [address]52-8 423-00 pt tolerated well/instructed to wait 20 min dexAMETHasone 10/05/2025 4 mg nd-26697-1 423-00Pa tient tolerated well. IM - Patient Supplied Med 09/20/2024 depo-provera 150 mg given IM in left deltoid. Patient tolerated well. Ketorolac Tromethamine 08/22/2024 60 mg nd [id number] Patient tolerated well. Ketorolac Tromethamine 09/07/2024 60 mg nd [id number] Patient tolerated well. Ketorolac Tromethamine 11/08/2024 60 mg nd [id number] Patient tolerated well. Ketorolac Tromethamine 03/09/2025 60 mg nd [id number] Patient tolerated well. Rocephin 02/22/2025 1 g [id number] -11 Patient tolerated well. Medical (General) History Medical History History ICD Code Acute depression Anxiety Depressive disorder Hypertensive disorder, systemic arterial Kidney stone Morbid obesity Tobacco user Kidney stone Surgical History Surgery Date(Month/Year) Appendectomy 2005 section 2014 Cholecystectomy 2009 D & C section 08/31/2019 Tubal ligation 08/31/2019 hernia Appendectomy section D and C Gallbladder surgery Hernia repair
[2025-10-21 21:02] VITALS: BP 126/72; PULSE 103; RESP 18; TEMP 36.9; O2SAT 96; BMI 37.5
--- NOTE | 2025-10-21 21:17 | CTR_ITS ---
PROCEDURE INFORMATION: Exam: CT Abdomen And Pelvis Without Contrast Exam date and time: 10/21/2025 10:12 PM Age: 35 years old Clinical indication: Abdominal pain; Prior surgery; Surgery date: 6+ months; Surgery type: Gb. Ventral hernia. Appy. Csection. C/O left flank pain with dysuria. ; Additional info: Abrupt stabbing L flank ardiating to L groin pain TECHNIQUE: Imaging protocol: Computed tomography of the abdomen and pelvis without contrast. Radiation optimization: All CT scans at this facility use at least one of these dose optimization techniques: automated exposure control; mA and/or kV adjustment per patient size (includes targeted exams where dose is matched to clinical indication); or iterative reconstruction. COMPARISON: US OB limited 18904 01/28/2019 7:37 PM RADIATION DOSE METRICS: Total DLP (mGy-cm): 922.23 FINDINGS: Lungs: Atelectasis at the lung bases. Liver: Normal. No mass. Gallbladder and biliary ducts: Cholecystectomy. Pancreas: Normal. No ductal dilation. Spleen: Normal. No splenomegaly. Adrenal glands: Normal. No mass. Kidneys and ureters: Obstructing 4 mm left distal ureter stone. Moderate hydronephrosis of the left kidney. Bilateral nonobstructing renal stones, measuring 2-3 mm in size. Stomach and bowel: Diverticulosis, without acute diverticulitis. No small bowel obstruction. No free air. Appendix: Appendectomy. Intraperitoneal space: See Stomach and bowel finding. Vasculature: Unremarkable. No abdominal aortic aneurysm. Lymph nodes: Unremarkable. No enlarged lymph nodes. Urinary bladder: Unremarkable as visualized. Reproductive: Unremarkable as visualized. Bones/joints: Unremarkable. No acute fracture. Soft tissues: Unremarkable. CT/CT kidney stone 23314 IMPRESSION: 1. Obstructing 4 mm left distal ureter stone. Moderate hydronephrosis of the left kidney. 2. Cholecystectomy. 3. Bilateral nonobstructing renal stones, measuring 2-3 mm in size. 4. Diverticulosis, without acute diverticulitis. No small bowel obstruction. No free air. 5. Appendectomy.
--- NOTE | 2025-10-21 21:20 | ED_ITS ---
HPI - Abdominal Pain 2 General: Chief Complaint: Abdominal Pain Stated Complaint: abd pain,can't pee,thinks might have kidney stone Time Seen by Provider: 10/21/25 20:56 History of Present Illness: Patient is a 35-year-old female with a past medical history of [place] on Suboxone, nephrolithiasis who presents to the ED with abrupt onset of left flank pain 1 day ago. States that it has been intermittent, stabbing and radiates to her left groin. Has noted some hematuria but also dysuria. Denies any fevers, NVD, last had a bowel movement today. Previous abdominal surgeries of hysterectomy, appendectomy, cholecystectomy. Her last round of kidney stones required admission for pain control but no intervention was ultimately needed in the past after hydration. Denies any vaginal discharge, new sexual contacts, vaginal bleeding. No recent trauma. Associated Symptoms: Reports dysuria and hematuria; Denies chills, diarrhea and fever(s) Related Data Home Medications ?Medication ?Instructions ?Recorded ?Confirmed buprenorphine 8 mg-naloxone 2 mg 1 film sublingual BID 05/10/20 06/02/25 sublingual film gabapentin 800 mg tablet 800 mg PO QID 05/03/2406/02 docusate sodium 100 mg capsule 100 mg PO BID PRN Const ipation 06/02/25 06/02/25 (Stool Softener) ibuprofen 600 mg tablet 600 mg PO QID PRN Pain 06/0206/02/25 ondansetron 8 mg disintegrating 8 mg PO Q8H PRN Nausea 06/02/25 06/02/25 tablet oxycodone-acetaminophen 5 mg-325 1 tab PO Q6H PRN Pain 06/02/25 06/02/25 mg tablet Previous Rx's ?Medication ?Instructions ?Recorded metoclopramide HCl 10 mg tablet 10 mg PO Q6H PRN nause a and 06/02/25 (Reglan) vomiting #15 tabs ketorolac 10 mg tablet 10 mg PO Q8H 5 days #15 tabs 10/21/25 ondansetron 4 mg disintegrating 4 mg PO TID PRN nausea and 10/21/25 tablet vomiting 4 days #14 tabs oxycodone 5 mg tablet 5 mg PO TID PRN pain #10 tab s 10/21/25 tamsulosin 0.4 mg capsule 0.4 mg PO DAILY #30 caps Allergies Allergy/AdvReac Type Severity Reaction Status Date / Time prochlorperazine (From Allergy ADR-Irritab Verified 06/02/25 14:06 Compazine) le ranitidine (From Zantac) Allergy ADR-Irritab Verified 06/02/25 14:06 le Review of Systems 2 General: Reports: 10 or more systems reviewed and unremarkable except in HPI and below Const: Denies: fever(s) or chills Eyes: Denies: change in vision or eye discharge Card: Denies: chest pain, palpitations or swelling of feet/ankles Resp: Denies: dyspnea or productive cough GI: Denies: abdominal pain or diarrhea : Reports: flank pain, dysuria and hematuria Musc: Denies: neck pain or back pain Skin/Breast: Denies: rash or jaundice Neuro: Denies: headache(s), numbness in extremities or weakness in extremities Alexey/Lymph: Denies: easy bruising or easy bleeding PFSH ED 2 PFSH: Medical History (Updated 10/21/25 @ 23:07 by Jj Castano DO) Neuropathy Chronic back pain Nephrolithiasis Surgical History History of section History of ventral hernia repair History of appendectomy History of cholecystectomy Family History Other CAD (coronary artery disease) Social History Smoking and tobacco/nicotine status: current every day tobacco/nicotine user cigarettes Packs smoked per day: 1 Alcohol intake: never Physical Exam 2 Narrative: EXAM NARRATIVE: Patient appears mildly uncomfortable secondary to pain, sinus tachycardia but normotensive, afebrile, no acute distress. Abdomen soft, nondistended, no reproducible abdominal tenderness, mild left CVA tenderness, bowel sounds intact. Breathing comfortably on room air, saturating well, no adventitious lung sounds. Mild sinus tach but normotensive, no leg swelling, 2+ pulses throughout, slightly delayed cap refill. GCS 15, following commands and answering questions appropriately, symmetrically and spontaneously moving all 4 extremities. Course 2 Vital Signs: Vital signs: Vital Signs Temperature 98.5 F 10/21/25 21:02 Pulse Rate 68 12/20/25 23:20 Respiratory Rate 17 10/21/25 23:20 Blood Pressure 120/67 10/21/25 23:20 Pulse Oximetry 95 10/21/25 23:20 Oxygen Delivery Me thod Room Air 10/21/25 21:02 MDM - Abdominal Pain Medical Decision Making -ddx: Nephrolithiasis, cystitis, pyelonephritis, STI, intra-abdominal abscess, dehydration, electrolyte abnormality - Patient with abrupt onset of intermittent left radiating flank pain with history of stones, will evaluate with abdominal labs, get CT Noncon and administer fluids, nausea and pain control and reassess. - Patient with 4 mm mildly obstructing kidney stone on the left with moderate hydro, no inflammatory stranding, no other intra-abdominal pathology, no concerns for ascending infection or pyelonephritis. No creatinine elevation, UA with moderate amount of blood which is to be expected, had a mild amount of whites but also contaminated with squamous epithelial cells, no large amount of bacteria, is afebrile, and do not believe to have a infection behind the stone. Her pain was completely controlled after a liter of fluids and Toradol, she was able to p.o. challenge without issue. She was offered transfer for urologic evaluation in setting of her obstructing kidney stone but with her improved, she was amenable to that and so she was discharged on Flomax, Zofran, oxycodone, Toradol and encouraged to stay very hydrated, given urology follow-up as needed and given very strict return precautions on signs of infection, worsening kidney dysfunction as in not urinating and worsening pain and to immediately return, patient and partner at bedside agreeable with plan of care and discharged home in stable condition. Lab Data 10/21/25 21:27 10/21/25 21:27 Labs/Radiology: Radiology Impressions Abdomen/Pelvis CT 10/21/25 21:17 IMPRESSION: 1. Obstructing 4 mm left distal ureter stone. Moderate hydronephrosis of the left kidney. 2. Cholecystectomy. 3. Bilateral nonobstructing renal stones, measuring 2-3 mm in size. 4. Diverticulosis, without acute diverticulitis. No small bowel obstruction. No free air. 5. Appendectomy. Laboratory Results WBC 9.76 10^3/uL (3.29-11.43) 10/21/25 21:27 RBC 4.44 10^6/uL (3.85-5.65) 10/21/25: Hgb 13.70 g/dL (11.27-16.99) 10/21/25: Hct 41.7 % (36-47) 10/21/25 21: MCV 93.9 fl (85-98) 10/21/25: MCH 30.9 pg (27-33) 10/21/25: MCHC 32.9 g/dL (30-55) 10/21/25: RDW 14.0 % (12.1-15.1) 10/21/25: Plt Count 209 10^3/cmm (157-399) 10/21/25: MPV 10.2 fL (7.4-10.4) 10/21/25: Neut % (Auto) 73.6 % 10/21/25: Lymph % (Auto) 19.2 % 10/21/25: Dent % (Auto) 5.1 % 10/21/25: Eos % (Auto) 1.1 % 10/21/25: Baso % (Auto) 0.7 % 10/21/25 Neut # (Auto) 7.18 10^3/uL (1.8-7.7) 10/21/25: Lymph # (Auto) 1.9 10^3/uL (0.8-4.8) 10/21/25: Dent # (Auto) 0.5 10^3/uL (0.2-0.9) 10/21/25: Eos # (Auto) 0.1 10^3/uL (0.0-0.8) 10/21/25: Baso # (Auto) 0.1 10^3/uL (0.0-0.1) 10/21/25: Nucleated RBC % (auto) 0 % 10/21/25: Nucleated RBCs # 0.0 /100WBC 10/21/25: Sodium 141 mmol/L (136-145) 10/21/25: Potassium 3.8 mmol/L (3.5-5.1) 10/21/25: Chloride 105 mmol/L (98-107) 10/21/25 21: Carbon Dioxide 27 mmol/L (22-29) 10/21/25 21: Anion Gap 12.8 (5-19) 10/21/25 21: BUN 10 mg/dL (6-20) 10/21/25: Creatinine 0.7 mg/dL (0.5-0.9) 10/21/25: GFR Calculation 94.7 mL/min (90-130) 10/21/25: Glucose 94 mg/dL (65-115) 10/21/25: Calculated Osmolality 291 mOsm/kg (285-295) 10/21/25: Calcium 9.0 mg/dL (8.5-10.5) 10/21/25: Phosphorus 3.0 mg/dL (2.5-4.5) 10/21/25: Magnesium 1.9 mg/dL (1.7-2.3) 10/21/25: Total Bilirubin 0.4 mg/dL (0.15-1.2) 10/21/25: AST 17 U/L (0-32) 10/21/25: ALT 31 U/L (0-33) 10/21/25 21: Alkaline Phosphatase 60 U/L (35-105) 10/21/25: C-Reactive Protein 3.0 mg/L (0.0-4.9) 10/21/25: Total Protein 6.4 g/dL (6.6-8.7) L 10/21/25: Albumin 4.1 g/dL (3.5-5.2) 10/21/25: Globulin 2.3 g/dL (1.3-4.6) 10/21/25: Lipase 32 U/L (13-60) 10/21/25: HCG, Qual Negative (Negative) 10/21/25 21: Urine Color Yellow (Yellow) 10/21/25 21: Urine Appearance Cloudy (CLEAR) A 10/21/25 21: Urine pH 6.0 (5-7) 10/21/25 21: Ur Specific [place] 1.020 (1.005-1.030) 10/21/25 21:53 Urine Protein Trace (Negative) A 10/21/25 21:53 Urine Glucose (UA) Negative (Normal) 10/21/25 21:53 Urine Ketones Trace (Negative) 10/21/25 21:53 Urine Blood 2+ (Negative) A 10/21/25 21:53 Urine Nitrate Negative (Negative) 10/21/25 21:53 Urine Bilirubin Negative (Negative) 10/21/25 21:53 Urine Urobilinogen 1.0 mg/dL (Negative) 10/21/25 21:53 Ur Leukocyte Esterase Negative (Negative) 10/21/25 21:53 Urine RBC 21-50 /hpf (0-2) H 10/21/25 21:53 Urine WBC 11-20 /hpf (0-5) H 10/21/25 21:53 Ur Squamous Epith Cells 11-20 /hpf (0-5) H 10/21/25 21:53 Amorphous Sediment Not Reportable 10/21/25 21:53 Urine Bacteria Trace /hpf (NONE) 10/21/25 21:53 Hyaline Casts 0.81 /lpf 10/21/25 21:53 All radiology interpretation(s) finalized by discharge Discharge Plan Discharge Patient Disposition: Home Clinical Impression: Left nephrolithiasis, Hydronephrosis Condition: Stable Prescriptions: New ondansetron 4 mg tablet,disintegrating 4 mg PO TID PRN (Reason: nausea and vomiting) 4 Days Qty: 14 0RF ketorolac 10 mg tablet 10 mg PO Q8H 5 Days Qty: 15 0RF tamsulosin 0.4 mg capsule 0.4 mg PO DAILY Qty: 30 0RF oxycodone 5 mg tablet 5 mg PO TID PRN (Reason: pain) Qty: 10 0RF No Action buprenorphine-naloxone 8-2 mg film 1 film sublingual BID gabapentin 800 mg tablet 800 mg PO QID metoclopramide HCl [Reglan] 10 mg tablet 10 mg PO Q6H PRN (Reason: nausea and vomiting) Qty: 15 0RF ondansetron 8 mg tablet,disintegrating 8 mg PO Q8H PRN (Reason: Nausea) oxycodone-acetaminophen 5-325 mg tablet 1 tab PO Q6H PRN (Reason: Pain) docusate sodium [Stool Softener] 100 mg capsule 100 mg PO BID PRN (Reason: Constipation) ibuprofen 600 mg tablet 600 mg PO QID PRN (Reason: Pain) Discharge Orders: Discharge ED (Routine); Ordered 10/21/25 Ordered By: Jj Castano Referrals: Zev Arredondo [Referring, Urology] - 4-7 days Josephine España MD [Primary Care Provider, [facility]] Discharge Diet: Advance as tolerated Discharge Activity: Resume usual activity Patient Instructions: Abdominal Pain (ED), Opioid Safety, Pain Management, Patient Portal & Vivian Instructions Activity Restrictions/Additional Instructions: You were seen for your left-sided pain, you were evaluated with labs and a CT scan which ultimately found you to have a 4 mm kidney stone in your left ureter that was causing a moderate amount of fluid backup but because your pain was controlled there was no kidney dysfunction and you did not have an associated infection, you were deemed stable to be discharged home to try to pass this on your own. To help do this, take the Flomax, 0.4 mg daily. For pain, use the Toradol 10 mg every 8 hours as needed, this is an NSAID and in place of ibuprofen so do not take that with this medication due to bleeding and kidney side effects. Alternate this still with Tylenol 650 mg every 6 hours as needed, for breakthrough pain on top of that, use oxycodone 5 mg every 8 hours as needed, this is safe to use on top of your Suboxone. Use the Zofran, 4 mg every 8 hours as needed for nausea. The most important thing is to stay as hydrated as possible to help push along the stone. If you wish to make an appointment with the urologist, their phone numbers listed above. 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
[2025-10-21 21:39] LABS: Hematocrit 41.7 % (36-47); Hemoglobin 13.70 g/dL (11.27-16.99); Mean Corpuscular HGB Conc 32.9 g/dL (30-55); Mean Corpuscular Hemoglobin 30.9 pg (27-33); Mean Corpuscular Volume 93.9 fl (85-98); Nucleated Red Blood Cells % 0 %; Platelet Count 209 10^3/cmm (157-399); Red Blood Count 4.44 10^6/uL (3.85-5.65); White Blood Count 9.76 10^3/uL (3.29-11.43)
[2025-10-21 21:54] LABS: Alanine Aminotransferase 31 U/L (0-33); Albumin Level 4.1 g/dL (3.5-5.2); Alkaline Phosphatase 60 U/L (35-105); Anion Gap 12.8 (5-19); Aspartate Amino Transferase 17 U/L (0-32); Blood Urea Nitrogen 10 mg/dL (6-20); Calcium 9.0 mg/dL (8.5-10.5); Carbon Dioxide 27 mmol/L (22-29); Chloride 105 mmol/L (98-107); Globulin 2.3 g/dL (1.3-4.6); Glucose 94 mg/dL (65-115); Lipase 32 U/L (13-60); Magnesium 1.9 mg/dL (1.7-2.3); Osmolality Calculated 291 mOsm/kg (285-295); Potassium 3.8 mmol/L (3.5-5.1); Sodium 141 mmol/L (136-145); Total Protein 6.4 g/dL (6.6-8.7)
[2025-10-21 21:56] LABS: HCG, Serum Qual Negative (Negative)
[2025-10-21 21:56] LABS: Glucose Urine UA Negative (Normal); Nitrate Urine Negative (Negative); Specific Gravity, Urine 1.020 (1.005-1.030)
[2025-10-21 22:01] LABS: Add Urine Microscopic? YES
[2025-10-21] MEDS: ondansetron 2 mg/ML SDV 2 mL 4 MG IVP (22:07)
[2025-10-21 22:10] VITALS: PULSE 67; RESP 17; O2SAT 94
[2025-10-21 23:20] VITALS: BP 120/67; PULSE 68; RESP 17; O2SAT 95
== END 2025-10-21 23:21 | disposition home or self-care (01) ==
PROVIDERS: Emergency Provider Student in an Organized Health Care Education/Training Program; PCP Family Medicine
DX: N13.30 Unspecified hydronephrosis (principal); N20.0 Calculus of kidney; Z87.442 Personal history of urinary calculi; F17.210 Nicotine dependence, cigarettes, uncomplicated
CPT/HCPCS: 36415; 74176; 80053; 81001; 83690; 83735; 84100; 84703; 85025; 86140; 96361; 96374; 96375; 99285; J1885; J2405; J7030

== ENCOUNTER 2025-10-22 18:54 | Emergency (ER) | payer OTHER, SELFPAY ==
--- OUTSIDE RECORDS SUMMARY | 2025-10-16 05:20 | XMS_ITS ---
Author Organization [facility] Address [address] [place] [address] Care Team Providers Care Senior Electronics Technician Name Role Phone Vicky Pope Primary Care Provider [phone] VICKY POPE Unavailable Unavailable Allergies Allergen (clinical drug ingredient) Drug/Non Drug Allergy documented on EMR Reaction Allergy Type Onset Date Status prochlorperazine Prochlorperazine , Weal (disorder) , Drug Allergy Active Zantac Unknown Drug Allergy Active Compazine Unknown Drug Allergy Active Latex Latex Unknown Allergy Active ranitidine Ranitidine , Weal (disorder) , Drug Allergy Active REASON FOR VISIT stomach issues Medications Medication SIG (Take, Route, Frequency, Duration) Notes Start Date End Date Status Buprenorphine HCl 8 MG Tablet Sublingual Sublingual; Duration: 30 Days Active Gabapentin 800 MG Tablet Oral; Duration: 30 Days Active Pantoprazole Sodium 40 MG Tablet Delayed Release 1 tablet 1/2 to 1 hour before morning meal Orally Once a day; Duration: 30 days 10/16/2025 Active Sucralfate 1 GM Tablet 1 tablet on an em pty stomach Orally 3 times a day; Duration: 7 days 10/16/2025 Active Social History Tobacco Use: Social History Observation Description Date Details (start date - stop date) Current Smoker 04/02/2015 - NA Social History Tobacco Use: Social Info Question Answer Notes [...] user Modera te cigarette smoker (10-19 cigs/day) Section Notes: 08/05/22 PHQ9 09/07/24 PHQ9 04/13/2025 PHQ9 Problems Problem Type SNOMED Code ICD Code Onset Dates Problem Status W/U Status Risk Notes Problem Gastroesophageal reflux disease (674708810) GERD (gastroeso phageal reflux disease) (K21.9) Active confirmed Vital Signs Temperature 98.1 degrees Fahrenheit 10/16/20 25 Blood pressure systolic 118 mm Hg 10/16/20 25 Blood pressure diastolic 76 mm Hg 025 Heart Rate 86 /min 10/16/2025 Respiratory Rate 20 /min 10/16/2025 Height 65 in 10/16/2025 Weight 219 lbs 10/16/2025 BMI 36.44 kg/m2 10/16/2025 Oximetry 99 % 10/16/2025 Height-cm 165.1 cm 10/16/2025 Weight-kg 99.34 kg 10/16/2025 Encounters Encounter Location Date Provider Diagnosis [facility] Office [address] [address] 10/16/2025 Vickyluis Pope Epigastric pain R10.13 and GERD (gastroesophageal reflux disease) K21.9 Assessments Encounter Date Diagnosis (ICD Code) Assessment Notes Treatment Notes Treatment Clinical Notes Section Notes 10/16/2025 Epigastric pain (ICD-10 - R10.13) 10/16/2025 GERD (gastroesophage al reflux disease) (ICD-10 - K21.9) Recheck in 1 month. Questions asked and answered; discharged to home. Plan Of Treatment Medication Medication Name Sig Start Date Stop Date Notes Pantoprazole Sodium 40 MG Ta blet Delayed Release 1 tablet 1/2 to 1 hour before morning meal Orally Once a day; Duration: 30 days 10/16/2025 Sucralfate 1 GM Tablet 1 tablet on an em pty stomach Orally 3 times a day; Duration: 7 days 10/16/2025 Treatment Notes Assessment Notes GERD (gastroesophageal reflux disease) R echeck in 1 month. Questions asked and answered; discharged to home. Next Appt Details Follow Up: 1 month, Reason: History and Physical Notes * HPI (History of Present Illness) Category Sub-Category Detail Notes Category Not es Patient Complaints Epigastric pain The pain has been present: for weeks The pain is located : in the epigastric area Severity of the pain: is moderate The nature of the pain is: a burning sensation, a dull ache, a feeling of fullness Aggravating factors include: eating a me al Associated symptoms include: nausea Medication(s) include: none Examination Category Sub-Category Detail Notes Category Not es General Examination GENERAL APPEARANCE: alert, w ell hydrated, in no distress EYES: PERRL; normal conjun ctiva NECK/THYROID: neck supple, full ra nge of motion HEART: regular rate and rhy thm LUNGS: clear to auscultatio n bilaterally ABDOMEN: soft, nondistended, epigastric tenderness SKIN: warm and dry , no ra shes MUSCULOSKELETAL: normal PSYCH: judgement and insigh t good , thought content without suicidal ideation, delusions , thought process logical, goal directed Progress Notes * Suhail CLAYTON MDOB: [birth year] (35 yo F)Acc No.[id number]:10/16/2025 Patient: Javier ashermona Suhail Cisneros Provider: Neftaly Pope APRN :1990 A ge:35 Y S ex:Female Date:10/16/2025 Address:[facility] Check In:11:02 AM CSTCheck O ut:11:18 AM 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 C ardiovascular D enies any recent chest pain, irregular heart beats, syncope, or shortness of breath. R espiratory D enies any shortness of breath, cough, or hemoptysis.. G astrointestinal R eports e pigastric pain, heartburn. D enies r ecent change in bowel habits. M usculoskeletal?Denies any joint pain or swelling, no recent trauma.. I ntegumentary D enies any rashes, bruising, or skin changes.. P sychiatric D enies depression, anxiety, or suicidal thoughts/actions.. 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 * OB History: C section(s) 2 . M iscarriage(s) 7 . P regnancy # 1: P rimary ; 07/13/2015; F; 6lbs 6oz. P regnancy # 2: R epeat ; 08/31/2019; F; 38W. T otal living children 2 . T otal pregnancies 9 . * Surgical History: Appendectomy 2005 section 2014 Cholecystectomy 2009 D & C section 08/31/2019 Tubal ligation 08/31/2019 hernia Appendectomy section D and C Gallbladder surgery Hernia repair Surgical History verified. * Hospitalization/Major Diagno stic Procedure: Denies Past Hospitalization. * Family History: F ather: heart disease, hypertension. M aternal Grand Father: lung cancer. P aternal Grand Father: leukemia. P aternal Grand Mother: hypertension, thyroid disease. M igrated Family History: : chronic pain,Diabetes,Heart disease,Rheumatoid arthritis. F amily History Verified.. * Social History: T obacco Use: T obacco Control (Standard) T obacco use: C urrent smoker W hen did you start smoking? 0 04/02/2015 H ow often do you smoke cigarettes? E very day H ow many cigarettes a day do you smoke? 1 1-20 H ow soon after you wake up do you smoke your first cigarette? 6 -30 minutes A re you interested in quitting? N ot ready to quit A dditional Findings: Tobacco user M oderate cigarette smoker (10-19 cigs/day) S ocial History Verified. 1 PHQ9 09/07/24 PHQ9 04/13/2025 PHQ9. * Medications: T akingBuprenorphine HCl 8 MG Tablet Sublingual Sublingual Gabapentin 800 MG Tablet Oral Medication List reviewed and reconciled with the patientTaking Buprenorphine HCl 8 MG Tablet Sublingual Sublingual Taking Gabapentin 800 MG Tablet Oral Medication List reviewed and reconciled with the patient * Allergies: Z antac: AllergyCompazine: AllergyProchlorperazine: , Weal (disorder) , - AllergyRanitidine: , Weal (disorder) , - AllergyLatexyesAllergies Verified. Objective: * Vitals: H t: 65 in, Wt:219lbs, Wt-k.34 kg, BMI:36.44Index, Temp:98.1F, BP:118/76mm Hg, HR:86/min, RR:20/min, Oxygen sat %:99%, Pain scale: 0 1-10, Ht-cm: 165.1 cm. * Examination: G eneral Examination: GENERAL APPEARANCE: a lert, well hydrated, in no distress.? EYES: P ERRL; normal conjunctiva. NECK/THYROID: n felisa supple, full range of motion. SKIN: w arm and dry , no rashes. HEART: r egular rate and rhythm. LUNGS: c lear to auscultation bilaterally. ABDOMEN: s oft, nondistended, epigastric tenderness. MUSCULOSKELETAL: n ormal. PSYCH: j udgement and insight good , thought content without suicidal ideation, delusions , thought process logical, goal directed. Assessment: * Assessment: 1. G ERD (gastroesophageal reflux disease) - K21.9 (Primary) 2 . E pigastric pain - R10.13 Plan: * Treatment: 2. E pigastric pain Start Sucralfate Tablet, 1 GM, 1 tablet on an empty stomach, Orally, 3 times a day, 7 days, 21 Tablet, Start Date: 10/16/2025, Refills 0. * Procedure Codes: 3 078F DIAST BP < 80 MM [id number] SYST BP LT 130 MM HG * Follow Up: 1 month Billing Information: * Visit Code: 66273 Office Visit, Est Pt., Level 3. * Procedure Codes: 3078F DIAST BP < 80 MM HG. 3074F SYST BP LT 130 MM HG. * SUPERVISOR Sign off status: Completed true * Provider: Neftaly Pope APRN Date: 12/17/2024 Generated for Blanquita ohara/Rani/Gómez on: 12/23/2024 07:04 PM RIG SUPERVISOR
[2025-10-22 18:58] VITALS: BP 145/83; PULSE 93; RESP 22; TEMP 37; O2SAT 96; BMI 37.5
--- OUTSIDE RECORDS SUMMARY | 2025-10-22 19:04 | XMS_ITS | Patient Health Record ---
Author Organization [facility] Address [address] [place] [address] Care Team Providers Care Well Service Derrick Worker Name Role Phone Vicky Pope Primary Care Provider VICKY POPE Unavailable Unavailable Eleanor Meza Unavailable [phone] Emily Maldonado Unavailable [phone] Allergies Allergen (clinical drug ingredient) Drug/Non Drug Allergy documented on EMR Reaction Allergy Type Onset Date Status prochlorperazine Prochlorperazine , Weal (disorder) , Drug Allergy Active Zantac Unknown Drug Allergy Active Compazine Unknown Drug Allergy Active Latex Latex Unknown Allergy Active ranitidine Ranitidine , Weal (disorder) , Drug Allergy Active Results Component Value Reference Range Flag Notes Schedule Confirmation Reviewed date:03/09/2025 11:00:18 AM Interpretation: Performing Lab: Notes/Report: US Breast Right Limited Schedule Confirmation Reviewed date:03/09/2025 11:00:07 AM Interpretation: Performing Lab: Notes/Report: Mammogram Diag Ar Derrick w/CAD Schedule Confirmation Reviewed date:03/09/2025 11:00:13 AM Interpretation: Performing Lab: Notes/Report: US Breast Left Limited COVID-19 RAPID - 36938 Reviewed date:10/05/2025 04:06:47 PM Interpretation: Performing Lab: Notes/Report: COVID19 negative T4 [id number] Reviewed date:10/05/2025 02:07:03 PM Interpretation: Performing Lab: Notes/Report: Diagnosis Description: Encounter for screening for other suspected endocrine disorder Free T4 1.25 0.89-1.76 NG/DL Thyroid Stimulating Hormone (TSH) 02361 Reviewed date:10/05/2025 02:07:03 PM Interpretation: Performing Lab: Notes/Report: Diagnosis Description: Encounter for screening for other suspected endocrine disorder TSH 3.414 .358-3.740 MlU/ML Rapid Strep (Strep A) -87477 Reviewed date:10/05/2025 04:07:01 PM Interpretation: Performing Lab: Notes/Report: Strep negative T3 Free 79053 Reviewed date:10/05/2025 02:07:03 PM Interpretation: Performing Lab: Notes/Report: Diagnosis Description: Encounter for screening for other suspected endocrine disorder Free T3 3.9 2.3-4.2 pg/mL Influenza A/B - 26059 Reviewed date:10/05/2025 04:07:17 PM Interpretation: Performing Lab: Notes/Report: A negative B negative Lipid Panel Reflex DLDL 8006 1, 07915 Reviewed date:10/05/2025 02:07:03 PM Interpretation: Performing Lab: [...] Trig is >400 mg/dl. See DLDL result. Schedule Confirmation Reviewed date:03/06/2025 06:55:00 AM Interpretation: Performing Lab: Notes/Report: Mammogram Diag Ar Derrick w/CAD Schedule Confirmation Reviewed date:03/06/2025 06:55:18 AM Interpretation: Performing Lab: Notes/Report: US Breast Right Limited Schedule Confirmation Reviewed date:03/06/2025 06:55:09 AM Interpretation: Performing Lab: Notes/Report: US Breast Left Limited Reason For Referral Reason Menstrual abnormalit y Diagnosis 1 Menstrual abnormalit y (N92.6) Referral Organization [facility] Referring Provider First Name Vicky Referring Provider Last Name Niko Referring Provider Speciality Nurse Buzz stevens Referred Provider Darien Galo Jr Referred Provider Specialty Etymology Professor and food safety field specialist General Notes Hetal Diaz 02/06 01:32:33 PM >faxed Referral Priority Routine Reason MENSTRUAL ABNORMALIT Y unable to accept, note sent to referring. Diagnosis 1 Irregular menstruati on, unspecified (N92.6) Referring Provider First Name VICKY Referring Provider Last Name NIKO Referring Provider Speciality Family Pra ctice Referred Organization [facility] Referred Provider Eleanor Meza Referred Address [address] [place] [address] ROSY Sou[address],[place], [place],[address], Referred Provider Specialty Etymology Professor and food safety field specialist Referral Priority Routine Reason Continued bilateral otalgia Diagnosis 1 Otalgia, bilateral ( H92.03) Referral Organization [facility] Referring Provider First Name Vicky Referring Provider Last Name Niko Referring Provider ity Nurse Buzz stevens Referred Provider Gene Ewing Referred Provider Specialty Ear, nose an d throat surgeon General Notes Hetal Diaz 04/13 03:56:57 PM >faxed Referral Priority Routine Reason Suboxone Diagnosis 1 Opioid dependence in remission (F11.21) Referral Organization [facility] Referring Provider First Name Vicky Referring Provider [...] PF Unknown 09/27/2025 Refused Influenza (whole), CPT 26307 Inactive Unknown 02/07/2019 Administered Social History Tobacco [...] W/U Status Risk Notes Problem Chronic pain (52510061) Other chronic pain (G89.29) Active confirmed Problem Disorder of breast (86558448) Other specified disorders of breast (N64.89) Active confirmed Problem Irregular menstruation (19460637) Irregular menstruation, unspecified (N92.6) Active confirmed Problem Anxiety (39355069) Anxiety (F41.9) Active confi rmed Problem Tobacco user (805455520) Cigarette nicotine dependence without complication (F17.210) Active confirmed Problem Sinusitis (62779856) Sinusitis (J32.9) Active confirmed Problem Insomnia (161752311) Insomnia (G47.00) Active confirmed Problem Obesity (436299035) Obesity (BMI 30-39.9) (E66.9) Active confirmed Problem Opioid dependence in remission (114692762) Opioid dependence in remission (F11.21) Active confirmed Problem Constipation (35275677) Constipation (K59.00) Active confirmed Problem Irregular menstruation (79175169) Menstrual abnormality (N92.6) Active confirmed Problem Gastroesophageal reflux disease (576876953) GERD (gastroesophage al reflux disease) (K21.9) Active confirmed Vital Signs Heart Rate 86 /min 10/16/2025 Temperature 98.1 degrees Fahrenheit 10/16/2025 Respiratory Rate 20 /min 10/16/2025 Blood pressure diastolic 76 mm Hg 10/16/2025 Oximetry 99 % 10/16/2025 Height-cm 165.1 cm 10/16/2025 Weight-kg 99.34 kg 10/16/2025 Height 65 in 10/16/2025 Blood pressure systolic 118 mm Hg 10/16/2025 Weight 219 lbs 10/16/2025 BMI 36.44 kg/m2 10/16/2025 Encounters Encounter Location Date Provider Diagnosis [facility] [address] [address] 03/21/2025 Emily Maldonado Bronchitis J40 ; Cough R05.9 and Sinusitis J32.9 [facility] [address] [facility] [address] [place] [address] 03/09/2025 Vicky Pope Frequent headaches R51.9 and Lumbar pain M54.50 [facility] [address] [place] [address] 03/01/2025 Vicky Pope Abscess of breast, left N61.1 and Other specified disorders of breast N64.89 [facility] [address] [place] [address] 02/22/2025 Vicky Pope Abscess of breast, left N61.1 [facility] [address] [place] [address] 02/02/2025 Vicky Pope Anxiety F41.9 and Menstrual abnormality N92.6 [facility] [address] [place] [address] 09/27/2025 Vicky Pope Encounter for weight management Z76.89 ; Obesity (BMI 30-39.9) E66.9 ; Encounter for immunization Z23 ; Immunization not carried out because of patient refusal Z28.21 and Cigarette nicotine dependence without complication F17.210 [facility] [address] [place] [address] 04/13/2025 Vicky Pope Otalgia, bilateral H92.03 ; Opioid dependence in remission F11.21 and Depression screen Z13.31 [facility] [address] [place] [address] 11/15/2024 Vicky Pope Acute bronchitis J20.9 [facility] [address] [place] [address] 11/08/2024 Vicky Kasperton Right arm pain M79.601 [facility] [address] [place] [address] 10/16/2025 Vickyangi Kasperton Epigastric pain R10.13 and GERD (gastroesophageal reflux disease) K21.9 [facility] [address] [place] [address] 10/05/2025 Vickyangi Kasperton Fever R50.9 ; Acute bronchitis J20.9 and Acute cough R05.1 [facility] [address] [place] [address] 07/24/2025 Vicky Pope Constipation K59.00 [facility] [address] [place] [address] 03/30/2025 Vicky Pope Acute otitis media with effusion of both ears H65.193 [facility] [address] [place] [address] 10/02/2025 Vicky Pope Lipid screening Z13.220 and Screening for thyroid disorder Z13.29 [facility] [address] [place] [address] 01/16/2025 Vicky Pope Anxiety F41.9 and Insomnia G47.00 [facility] [address] [place] [address] 03/01/2025 Vicky Pope Abscess of breast, left N61.1 and Subareolar mass of left breast N63.42 [facility] [address] [place] [address] 02/07/2025 Eleanor Meza Assessments Encounter Date Diagnosis (ICD Code) Assessment Notes Treatment Notes Treatment Clinical Notes Section Notes 03/01/2025 Subareolar mass of left breast (ICD-10 - N63.42) 03/01/2025 Abscess of breast, left (ICD-10 - N61.1) 03/30/2025 Acute otitis media with effusion of both ears (ICD-10 - H65.193) Increase fluids, take medication as directed. RTC if no improvement with treatment. 10/16/2025 Epigastric pain (ICD-10 - R10.13) 10/16/2025 GERD (gastroesophageal reflux disease) (ICD-10 - K21.9) Recheck in 1 month. Questions asked and answered; discharged to home. 10/05/2025 Acute bronchitis (ICD-10 - J20.9) Increase fluids, take medication as directed. RTC if no improvement with treatment. Questions asked and answered; discharged to home. 10/05/2025 Fever (ICD-10 - R50.9) 10/02/2025 Screening for thyroid disorder (ICD-10 - Z13.29) 10/02/2025 Lipid screening (ICD-10 - Z13.220) 09/27/2025 Obesity (BMI 30-39.9) (ICD-10 - E66.9) 09/27/2025 Encounter for weight management (ICD-10 - Z76.89) Increased activity, such as Brisk walking, yoga, hiking. Decrease intake, such as reduce sugar, reduce sodium, reduce portions, reduce carbohydrates, increase water intake, increase fiber. Take medication as directed. RTC 1 month for recheck. Questions asked and answered; discharged to home. 07/24/2025 Constipation (ICD-10 - K59.00) Constipation: Care Instructions material was printed RTC with any concerns. 04/13/2025 Otalgia, bilateral (ICD-10 - H92.03) 04/13/2025 Opioid dependence in remission (ICD-10 - F11.21) 03/21/2025 Bronchitis (ICD-10 - J40) 03/21/2025 Cough (ICD-10 - R05.9) 03/09/2025 Frequent headaches (ICD-10 - R51.9) Toradol injection given. Keep headache log, recheck in 2 weeks. 03/09/2025 Lumbar pain (ICD-10 - M54.50) Steroid injection given. 03/01/2025 Other specified disorders of breast (ICD-10 - N64.89) 03/01/2025 Abscess of breast, left (ICD-10 - N61.1) 02/22/2025 Abscess of breast, left (ICD-10 - N61.1) Rocephin injection given today. Recheck in 1 week, will order mammo and/US at that time. 02/02/2025 Anxiety (ICD-10 - F41.9) Recheck in 1 month. 02/02/2025 Menstrual abnormality (ICD-10 - N92.6) 01/16/2025 Anxiety (ICD-10 - F41.9) Recheck in 1 month. 01/16/2025 Insomnia (ICD-10 - G47.00) 11/08/2024 Right arm pain (ICD-10 - M79.601) Toradol injection given. RTC if do not improve with treatment, will need imaging. 11/15/2024 Acute bronchitis (ICD-10 - J20.9) Steroid injection given. Increase fluids, take medication as directed. RTC if no improvement with treatment. 03/21/2025 Sinusitis (ICD-10 - J32.9) amoxicillin depomedrol/decad shawn im 04/13/2025 Depression screen (ICD-10 - Z13.31) 09/27/2025 Encounter for immunization (ICD-10 - Z23) 10/05/2025 Acute cough (ICD-10 - R05.1) 09/27/2025 Immunization not carried out because of patient refusal (ICD-10 - Z28.21) 09/27/2025 Cigarette nicotine dependence without complication (ICD-10 - F17.210) I spent 3 minutes on tobacco cessation counseling. Patient is not willing to attempt cessation. I will continue to certified alcohol counselor and educate patient in future appointments about the harm and risks of tobacco abuse. I have discussed different medication options with patient today including chantix, wellbutrin, patches, gum and the process of slowly cutting back on nicotine. 03/21/2025 Other Questions asked and answered; discharged to home. 10/02/2025 Other Venipuncture performed. Left hand. One attempt. Pt tolerated well, bleeding controlled with light dressing.[facility] Plan Of Treatment No Information Insurance Providers Payer Name Payer Address Payer Phone Subscriber Number Group Number Insured Name Patient Relationship to Insured Coverage Start Date Coverage End Date Vickie ARANGO [address] [place] [phone] [id number] Suhail Clayton Self - patient is the insured 4 Medications Administered Medication Instructions Date of Administration Dosage Notes DEPO-Medrol 11/15/2024 40 mg [id number] 7-31 Patient tolerated well. DEPO-Medrol 03/09/2025 40 mg [id number] 3-01 Patient tolerated well. DEPO-Medrol 03/21/2025 40 mg ndc 12249-690 3-01 pt tolerated well/instructed to wait 20 min DEPO-Medrol 10/05/2025 40 mg [id number] 3-01Pa tient tolerated well. dexAMETHasone 11/15/2024 4 mg [id number] 419-00 Patient tolerated well. dexAMETHasone 03/09/2025 4 mg [id number] 423-00 Patient tolerated well. dexAMETHasone 03/21/2025 4 mg [facility] 31145-1 423-00 pt tolerated well/instructed to wait 20 min dexAMETHasone 10/05/2025 4 mg nd-43260-6 423-00Pa tient tolerated well. IM - Patient Supplied Med 09/20/2024 depo-provera 150 mg given IM in left deltoid. Patient tolerated well. Ketorolac Tromethamine 08/22/2024 60 mg nd [id number] Patient tolerated well. Ketorolac Tromethamine 09/07/2024 60 mg nd [id number] Patient tolerated well. Ketorolac Tromethamine 11/08/2024 60 mg nd [id number] Patient tolerated well. Ketorolac Tromethamine 03/09/2025 60 mg nd [id number] Patient tolerated well. Rocephin 02/22/2025 1 g [id number] -11 Patient tolerated well. Medical (General) History [...]
== END 2025-10-22 19:30 | disposition left against medical advice (07) ==
LOC: ER 19:03
PROVIDERS: Emergency Provider Physician Assistant; PCP Family Medicine
DX: Z53.21 Procedure and treatment not carried out due to patient leaving prior to being seen by health care provider (principal)